=== PATIENT | female | born 1980 | race African-American/Black ===

== ENCOUNTER 2016-06-21 18:20 | Inpatient (IN) | payer MEDICAID, OTHER ==
[~2016-06-21] VITALS: Ht 152.4 cm; Wt 57.2 kg
[2016-06-21] VITALS (8 sets, daily range): BP systolic 109–124; BP diastolic 64–86; PULSE 109–140; RESP 16–40; TEMP 98.9–99.9; O2SAT 76–98
[~2016-06-21 18:20] MED LIST: CLON.2 PO; ZOLO20CO PO; inhaler INH
[2016-06-21] MEDS ORDERED: methylPREDNISolone SOD SUCC 125 MG/2 ML VIAL IVP ONE (18:45)
[2016-06-21] MEDS ORDERED: SODIUM CHLORIDE 0.9% FLUSH 10 ML FLUSH IVF PRN (18:45)
[2016-06-21] MEDS: RESP: ALBUTEROL 2.5 MG/IPRATROPIUM 0.5 MG NEB (SCH) INH (18:53)
[2016-06-21 19:08] LABS: AUTOMATED NEUTROPHIL # 10.8 TH/MM3 (1.8-7.7); BASOPHIL # 0.1 TH/MM3 (0-0.2); BASOPHIL % 0.7 % (0.0-2.0); EOSINOPHIL % 0.1 % (0.0-4.0); HEMATOCRIT 36.3 % (35.0-46.0); HEMO FLAGS DIFF FINAL; LYMPH % 7.3 % (9.0-44.0); MEAN CELL VOLUME 101.7 FL (80.0-100.0); MEAN CORPUSCULAR HEMOGLOBIN 35.3 PG (27.0-34.0); MEAN CORPUSCULAR HGB CONC 34.7 % (32.0-36.0); MONO % 10.4 % (0.0-8.0); NEUT % 81.5 % (16.0-70.0); PLATELET COUNT 263 TH/MM3 (150-450); RED BLOOD COUNT 3.57 MIL/MM3 (4.00-5.30); RED CELL DISTRIBUTION WIDTH 14.4 % (11.6-17.2); WHITE BLOOD COUNT 13.3 TH/MM3 (4.0-11.0)
--- NOTE | 2016-06-21 19:19 | PD ---
HPI Chief Complaint: Respiratory Symptoms Time Seen by Provider: 18:40 Travel History International Travel<30 days: No Contact w/Intl Traveler<30days: No Traveled to known affect area: No History of Present Illness HPI Patient is a 35-year-old female presenting to emergency department the back for evaluation of shortness of breath. Patient symptoms have been ongoing for 4 days, she reports wheezing EMS states that patient's oxygen saturation was in the low 70s initially, after 2 DuoNeb and O2 administration her sats were assessed at 92%. EMS states that the patient was tachycardic with a rate of 115. After nebulizer treatments patient's heart rate was 130. Patient reports coughing up clear mucus, reports nausea but no vomiting. History of asthma, hypertension, anxiety. She is current daily daily smoker. PFSH Past Medical History Hx Anticoagulant Therapy: No Asthma: Yes Anxiety: Yes Depression: Yes Cardiovascular Problems: Yes (HTN) Chemotherapy: No Cerebrovascular Accident: No Diabetes: No Hypertension: Yes Respiratory: Yes (ASTHMA) Immunizations Current: Yes Influenza Vaccination: No ?: Not LMP: 05/30/2016 : 3 Para: 3 Tubal Ligation: Yes Past Surgical History Section: Yes (X 2) Hysterectomy: No Tonsillectomy: Yes (AND ADDENOIDS) Social History Alcohol Use: Yes (OCCASIONALLY) Tobacco Use: Yes (1/2 ppd) Substance Use: No Allergies-Medications (Allergen,Severity, Reaction): Coded Allergies: No Known Allergies (Unverified , 06/21/16) Reported Meds & Prescriptions Reported Meds & Active Scripts Active No Active Prescriptions or Reported Medications Review of Systems Except as stated in HPI: all other systems reviewed are Neg General / Constitutional: No: Fever Respiratory: Positive: Cough, Shortness of Breath Gastrointestinal: Positive: Nausea, Vomiting, No: Abdominal Pain Neurologic: Positive: Weakness Physical Exam Narrative GENERAL: Well, well-nourished, alert female. Appears uncomfortable. SKIN: Warm and dry. HEAD: Atraumatic. Normocephalic. EYES: Pupils equal and round. No scleral icterus. No injection or drainage. ENT: No nasal bleeding or discharge. Mucous membranes pink and moist. NECK: Trachea midline. No JVD. CARDIOVASCULAR: Regular rate and rhythm. RESPIRATORY: Tachypneic. Left lower lung with coarse breath sounds. No wheezing noted on exam. GASTROINTESTINAL: Abdomen soft, non-tender, nondistended. Hepatic and splenic margins not palpable. MUSCULOSKELETAL: Extremities without clubbing, cyanosis, or edema. No obvious deformities. NEUROLOGICAL: Awake and alert. No obvious cranial nerve deficits. Motor grossly within normal limits. Five out of 5 muscle strength in the arms and legs. Normal speech. PSYCHIATRIC: Appropriate mood and affect; insight and judgment normal. Data Data Last Documented VS Vital Signs Date Time Temp Pulse Resp B/P Pulse Ox O2 Delivery O2 Flow Rate FiO2 06/21/16 20:40 126 32 121/86 89 Non-Rebreather 100 06/21/16 20:01 15 06/21/16 18:34 99.9 Orders Complete Blood Count With Diff (06/21/16 18:40) Comprehensive Metabolic Panel (06/21/16 18:40) D-Dimer (06/21/16 18:40) Act Partial Throm Time (Ptt) (06/21/16 18:40) Prothrombin Time / Inr (Pt) (06/21/16 18:40) Magnesium (Mg) (06/21/16 18:40) Ckmb (Isoenzyme) Profile (06/21/16 18:40) Troponin I (06/21/16 18:40) Urinalysis - C+S If Indicated (06/21/16 18:40) Iv Access Insert/Monitor (06/21/16 18:40) Electrocardiogram (06/21/16 18:40) Ecg Monitoring (06/21/16 18:40) Oximetry (06/21/16 18:40) Oxygen Administration (06/21/16 18:40) Chest, Single Ap (06/21/16 18:40) Sodium Chloride 0.9% Flush (Ns Flush) (06/21/16 18:45) Methylprednisolone So Succ Inj (Solumedr (06/21/16 18:45) Albuterol-Ipratropium Neb (Duoneb Neb) (06/21/16 18:45) Ed Urine Pregnancytest Poc (06/21/16 18:40) Hydromorphone Pf Inj (Dilaudid Pf Inj) (06/21/16 19:30) Lorazepam Inj (Ativan Inj) (06/21/16 19:30) Lidocaine 1% Inj (50 Ml) (Xylocaine 1% I (06/21/16 19:45) Chest, Single Ap (06/21/16 19:55) Potassium Chlor 20 Meq Premix (Kcl 20 Me (06/21/16 20:00) Consult General Surgery (06/21/16 ) Chest, Single Ap (06/21/16 20:39) Labs Laboratory Tests Test 06/21/16 19:00 White Blood Count 13.3 TH/MM3 Red Blood Count 3.57 MIL/MM3 Hemoglobin 12.6 GM/DL Hematocrit 36.3 % Mean Corpuscular Volume 101.7 FL Mean Corpuscular Hemoglobin 35.3 PG Mean Corpuscular Hemoglobin 34.7 % Concent Red Cell Distribution Width 14.4 % Platelet Count 263 TH/MM3 Mean Platelet Volume 8.7 FL Neutrophils (%) (Auto) 81.5 % Lymphocytes (%) (Auto) 7.3 % Monocytes (%) (Auto) 10.4 % Eosinophils (%) (Auto) 0.1 % Basophils (%) (Auto) 0.7 % Neutrophils # (Auto) 10.8 TH/MM3 Lymphocytes # (Auto) 1.0 TH/MM3 Monocytes # (Auto) 1.4 TH/MM3 Eosinophils # (Auto) 0.0 TH/MM3 Basophils # (Auto) 0.1 TH/MM3 CBC Comment DIFF FINAL Differential Comment Prothrombin Time 10.6 SEC Prothromb Time International 1.0 RATIO Ratio Activated Partial 26.8 SEC Thromboplast Time D-Dimer Quantitative (PE/DVT) 0.54 MG/L FEU Sodium Level 135 MEQ/L Potassium Level 2.9 MEQ/L Chloride Level 95 MEQ/L Carbon Dioxide Level 29.0 MEQ/L Anion Gap 11 MEQ/L Blood Urea Nitrogen 9 MG/DL Creatinine 0.64 MG/DL Estimat Glomerular Filtration 126 ML/MIN Rate Random Glucose 128 MG/DL Calcium Level 8.7 MG/DL Magnesium Level 1.7 MG/DL Total Bilirubin 0.7 MG/DL Aspartate Amino Transf 46 U/L (AST/SGOT) Alanine Aminotransferase 32 U/L (ALT/SGPT) Alkaline Phosphatase 134 U/L Total Creatine Kinase 61 U/L Troponin I LESS THAN 0.02 NG/ML Total Protein 7.6 GM/DL Albumin 3.1 GM/DL MDM Medical Decision Making Medical Screen Exam Complete: Yes Emergency Medical Condition: Yes Interpretation(s) Last Impressions Chest X-Ray 06/21/16 1840 Signed Impressions: Service Date/Time: Tuesday, June 21, 2016 18:50 - CONCLUSION: 1. Large right-sided pneumothorax with near complete collapse of the right lung and slight mediastinal shift from [id number]. The emergency department is aware of this finding. Rafael Matias MD Vital Signs Date Time Temp Pulse Resp B/P Pulse Ox O2 Delivery O2 Flow Rate FiO2 06/21/16 18:37 130 16 124/78 95 Partial Rebreather 15 06/21/16 18:34 99.9 140 16 124/78 76 Differential Diagnosis Asthma exacerbation versus pneumonia versus bronchitis versus pulmonary embolism versus pneumothorax versus other Narrative Course Patient is a 35-year-old female presenting to emergency for evaluation of 4 days of shortness of breath. Patient has a history of asthma, labs and imaging were ordered and pending, patient is tachycardic on arrival, IV access established, patient placed on telemetry monitoring and continuous pulse oximetry. Patient was placed on nonrebreather O2 sats in the upper 80s. Initial chest x-ray shows a large right-sided pneumothorax with near-complete collapse of the right lung with slight mediastinal shift from the right to left. Chest tube placement Dr. Reis, for procedure documentation. Lab reported a potassium level of 2.9, IV replacement ordered. D-dimer elevated at 0.54 Due to the critical status of patient, care was assumed by my attending physician please see her documentation. Scripts No Active Prescriptions or Reported Meds Ellie Rodriguez June 21, 2016 19:19
[2016-06-21 19:24] LABS: APTT (PATIENT) 26.8 SEC (24.3-30.1); PROTHROMBIN TIME - PATIENT 10.6 SEC (9.8-11.6)
[2016-06-21] MEDS ORDERED: HYDROmorphone HCL PF 1 MG/ML VIAL IV PUSH ONE (19:30)
[2016-06-21] MEDS ORDERED: LORazepam 2 MG/ML VIAL IV PUSH ONE (19:30)
[2016-06-21 19:41] LABS: ALKALINE PHOSPHATASE 134 U/L (45-117); ALT (GPT) 32 U/L (10-53); ANION GAP 11 MEQ/L (5-15); AST (GOT) 46 U/L (15-37); BLOOD UREA NITROGEN 9 MG/DL (7-18); CHLORIDE 95 MEQ/L (98-107); GLOMERULAR FILTRATION RATE 126 ML/MIN (>89); MAGNESIUM 1.7 MG/DL (1.5-2.5); SODIUM (NA) 135 MEQ/L (136-145); TOTAL BILIRUBIN ADULT 0.7 MG/DL (0.2-1.0)
[2016-06-21] MEDS ORDERED: LIDOCAINE HCL 1% 50 ML VIAL INFIL ONE (19:45)
--- NOTE | 2016-06-21 19:46 | RADRPT ---
EXAM DATE/TIME: 06/21/2016 18:50 [facility] COMPARISON: No previous studies available for comparison. INDICATIONS : Cough. MEDICAL HISTORY : None. SURGICAL HISTORY : None. ENCOUNTER: Initial ACUITY: 4 - 6 days PAIN SCORE: 0/10 LOCATION: Bilateral chest FINDINGS: There is a large right-sided pneumothorax with near-complete collapse of the right lung. There is sli ght mediastinal shift from right to left. There is some compressive atelectasis in the left lung. No effusion. CONCLUSION: 1. Large right-sided pneumothorax with near complete collapse of the right lung and slight mediastina l shift from [id number]. The emergency department is aware of this finding. Rafael Matias MD on June 21, 2016 at 19:42 Board Certified Radiologist. This report was verified electronically.
[2016-06-21 19:54] LABS: CREATINE KINASE 61 U/L (26-192)
[2016-06-21 19:56] LABS: POTASSIUM 2.9 MEQ/L (3.5-5.1)
[2016-06-21] MEDS: POTASSIUM CHLOR 20 MEQ PREMIX 100 ML IV SCH ×2 (20:00→22:00)
--- NOTE | 2016-06-21 20:49 | RADRPT ---
EXAM DATE/TIME: 06/21/2016 20:04 [facility] COMPARISON: CHEST SINGLE AP, June 21, 2016, 18:50. INDICATIONS : Chest Tube Placement MEDICAL HISTORY : None. SURGICAL HISTORY : None. ENCOUNTER: Subsequent ACUITY: 4 - 6 days PAIN SCORE: 0/10 LOCATION: Bilateral chest FINDINGS: A single view of the chest demonstrates a small caliber right chest tube. There are is a residual sma ll right pneumothorax. There is increased airspace disease in the lungs which could represent reexpan stalin pulmonary edema. No left pneumothorax. CONCLUSION: 1. Patient has small caliber right chest tube. Small residual right pneumothorax. Probable reexpansio n pulmonary edema. Rafael Matias MD on June 21, 2016 at 20:45 Board Certified Radiologist. This report was verified electronically.
--- NOTE | 2016-06-21 21:00 | RADRPT ---
EXAM DATE/TIME: 06/21/2016 20:40 [facility] COMPARISON: CHEST SINGLE AP, June 21, 2016, 20:04. INDICATIONS : Short of breath. MEDICAL HISTORY : SURGICAL HISTORY : None. ENCOUNTER: Initial ACUITY: 1 day PAIN SCORE: 0/10 LOCATION: Bilateral chest FINDINGS: There is increasing airspace disease in right lung, probably reexpansion pulmonary edema. Less severe airspace disease present on the left. There is a right-sided chest small right pneumothorax. CONCLUSION: 1. Increasing airspace disease in the right lung, probably reexpansion pulmonary edema. There is a ri ght chest tube with a small residual right pneumothorax. Rafael Matias MD on June 21, 2016 at 20:57 Board Certified Radiologist. This report was verified electronically.
--- NOTE | 2016-06-21 21:32 | PD ---
Physical Exam Date Seen by Provider: June 21, 2016 Time Seen by Provider: 20:00 Narrative I, Dr. Herndon, have reviewed the advance practice practitioner's documentation and am in agreement, met with the patient face to face, made the diagnosis, and the medical decision making was done by me. *My assessment and Findings: Patient seen and evaluated with PA, please see PA note for further details. Patient was examined by me and has decreased breath sounds throughout although more pronounced on the right than the left. She had some mild wheezing on the left as well. She had been treated with Solu-Medrol and nebulizers with slow saturations and tachycardia. Chest x-ray done shows large right pneumothorax. At this point, chest tube was placed by me for reexpansion. Patient was given Dilaudid and Ativan for pain and anxiety relief. After chest tube, saturations came up to 100%. Patient had less respiratory distress. A repeat chest film was done which shows chest tube in place. However, there does appear to be pulmonary edema on the right and case was discussed with Dr. Matias who confirms pulmonary edema, likely secondary to reexpansion. At this point, patient will need further admission and treatment. Case was discussed with Dr. Mckinley of general surgery and he states that he would like the patient to be medically admitted with consult to him. Patient's lab work returns showing low potassium and IV potassium has been ordered. Case was then discussed with Dr. Valencia for admission to ICU considering the significant pulmonary edema. At this point, patient saturations are again low at a rate of 90% on oxygen. It appears that the chest tube is in place. There is good airflow through the Pleur-evac. Additional chest x-ray was done to rule out a clot chest tube or chest tube malfunction. Additional chest x-ray did not show any new findings and shows that the lung has been reexpanded with pulmonary edema notable again. At this point, Dr. Valencia was called regarding findings and ABG has been ordered, and he states he will evaluate the patient. At this point, care has been transferred to Dr. Valencia at 9 PM. Laboratory Tests Test 06/21/16 19:00 White Blood Count 13.3 TH/MM3 (4.0-11.0) Red Blood Count 3.57 MIL/MM3 (4.00-5.30) Mean Corpuscular Volume 101.7 FL (80.0-100.0) Mean Corpuscular Hemoglobin 35.3 PG (27.0-34.0) Neutrophils (%) (Auto) 81.5 % (16.0-70.0) Lymphocytes (%) (Auto) 7.3 % (9.0-44.0) Monocytes (%) (Auto) 10.4 % (0.0-8.0) Neutrophils # (Auto) 10.8 TH/MM3 (1.8-7.7) Monocytes # (Auto) 1.4 TH/MM3 (0-0.9) D-Dimer Quantitative (PE/DVT) 0.54 MG/L FEU (0.00-0.50) Sodium Level 135 MEQ/L (136-145) Potassium Level 2.9 MEQ/L (3.5-5.1) Chloride Level 95 MEQ/L (98-107) Random Glucose 128 MG/DL (74-106) Aspartate Amino Transf 46 U/L (15-37) (AST/SGOT) Alkaline Phosphatase 134 U/L (45-117) Troponin I LESS THAN 0.02 NG/ML (0.02-0.05) Albumin 3.1 GM/DL (3.4-5.0) Last 24 hours Impressions Chest X-Ray 06/21/16 1840 Signed Impressions: Service Date/Time: Tuesday, June 21, 2016 18:50 - CONCLUSION: 1. Large right-sided pneumothorax with near complete collapse of the right lung and slight mediastinal shift from [id number]. The emergency department is aware of this finding. Rafael Matias MD Data Data Last Documented VS Vital Signs Date Time Temp Pulse Resp B/P Pulse Ox O2 Delivery O2 Flow Rate FiO2 06/21/16 20:54 30 06/21/16 20:40 126 121/86 89 Non-Rebreather 100 06/21/16 20:01 15 06/21/16 18:34 99.9 Orders Complete Blood Count With Diff (06/21/16 18:40) Comprehensive Metabolic Panel (06/21/16 18:40) D-Dimer (06/21/16 18:40) Act Partial Throm Time (Ptt) (06/21/16 18:40) Prothrombin Time / Inr (Pt) (06/21/16 18:40) Magnesium (Mg) (06/21/16 18:40) Ckmb (Isoenzyme) Profile (06/21/16 18:40) Troponin I (06/21/16 18:40) Urinalysis - C+S If Indicated (06/21/16 18:40) Iv Access Insert/Monitor (06/21/16 18:40) Electrocardiogram (06/21/16 18:40) Ecg Monitoring (06/21/16 18:40) Oximetry (06/21/16 18:40) Oxygen Administration (06/21/16 18:40) Chest, Single Ap (06/21/16 18:40) Sodium Chloride 0.9% Flush (Ns Flush) (06/21/16 18:45) Methylprednisolone So Succ Inj (Solumedr (06/21/16 18:45) Albuterol-Ipratropium Neb (Duoneb Neb) (06/21/16 18:45) Ed Urine Pregnancytest Poc (06/21/16 18:40) Hydromorphone Pf Inj (Dilaudid Pf Inj) (06/21/16 19:30) Lorazepam Inj (Ativan Inj) (06/21/16 19:30) Lidocaine 1% Inj (50 Ml) (Xylocaine 1% I (06/21/16 19:45) Chest, Single Ap (06/21/16 19:55) Potassium Chlor 20 Meq Premix (Kcl 20 Me (06/21/16 20:00) Consult General Surgery (06/21/16 ) Chest, Single Ap (06/21/16 20:39) Admit Order (Ed Use Only) (06/21/16 20:53) Labs Laboratory Tests Test 06/21/16 19:00 White Blood Count 13.3 TH/MM3 Red Blood Count 3.57 MIL/MM3 Hemoglobin 12.6 GM/DL Hematocrit 36.3 % Mean Corpuscular Volume 101.7 FL Mean Corpuscular Hemoglobin 35.3 PG Mean Corpuscular Hemoglobin 34.7 % Concent Red Cell Distribution Width 14.4 % Platelet Count 263 TH/MM3 Mean Platelet Volume 8.7 FL Neutrophils (%) (Auto) 81.5 % Lymphocytes (%) (Auto) 7.3 % Monocytes (%) (Auto) 10.4 % Eosinophils (%) (Auto) 0.1 % Basophils (%) (Auto) 0.7 % Neutrophils # (Auto) 10.8 TH/MM3 Lymphocytes # (Auto) 1.0 TH/MM3 Monocytes # (Auto) 1.4 TH/MM3 Eosinophils # (Auto) 0.0 TH/MM3 Basophils # (Auto) 0.1 TH/MM3 CBC Comment DIFF FINAL Differential Comment Prothrombin Time 10.6 SEC Prothromb Time International 1.0 RATIO Ratio Activated Partial 26.8 SEC Thromboplast Time D-Dimer Quantitative (PE/DVT) 0.54 MG/L FEU Sodium Level 135 MEQ/L Potassium Level 2.9 MEQ/L Chloride Level 95 MEQ/L Carbon Dioxide Level 29.0 MEQ/L Anion Gap 11 MEQ/L Blood Urea Nitrogen 9 MG/DL Creatinine 0.64 MG/DL Estimat Glomerular Filtration 126 ML/MIN Rate Random Glucose 128 MG/DL Calcium Level 8.7 MG/DL Magnesium Level 1.7 MG/DL Total Bilirubin 0.7 MG/DL Aspartate Amino Transf 46 U/L (AST/SGOT) Alanine Aminotransferase 32 U/L (ALT/SGPT) Alkaline Phosphatase 134 U/L Total Creatine Kinase 61 U/L Troponin I LESS THAN 0.02 NG/ML Total Protein 7.6 GM/DL Albumin 3.1 GM/DL [facility] Medical Record Reviewed: Yes Supervised Visit with SAMIA: Yes Critical Care Narrative Critical Care: The total critical care time was 35 minutes. Time to perform other separately billable procedures was not included in the critical care time. Aggregate critical care time was 35 minutes. Time to perform other separately billable procedures was not included in the critical care time. My time did not include minutes spent treating any other patients simultaneously or on activities that did not directly contribute to the patient's treatment. The services I provided to this patient were to treat and/or prevent clinically significant deterioration that could result in: Tension pneumothorax, respiratory failure, I provided critical care services requiring my management, as noted below: Chart data review, documentation time, medication orders and management, vital sign assessments/reviewing monitor data, ordering and reviewing lab tests, ordering and interpreting/reviewing x-rays and diagnostic studies, care of the patient and discussion of the patient with the admitting physicians. Procedures Procedure Narrative CHEST TUBE THORACOSTOMY: The right chest was prepped with Betadine and sterilely draped. The area of the fifth intercostal interspace was infiltrated with 1% lidocaine plain. A half centimeter incision was made with a scalpel at the fifth intercostal space. Blunt dissection using pigtail catheter on trocar to the fourth intercostal interspace performed and the pleura was punctured with immediate forbes of air. Catheter was then directed posteriorly. Tube draining well. The thoracostomy tube was secured with suture device to the chest wall. Patient tolerated procedure well. Diagnosis Primary Impression: Pneumothorax, right Additional Impressions: Chest tube in place Pulmonary edema Admitting Information Admitting Physician Requests: Admit Scripts No Active Prescriptions or Reported Meds Heriberto Herndon MD June 21, 2016 21:32
[2016-06-21 21:35] LABS: BLOOD GAS CARBOXYHEMOGLOBIN 1.4 % (0-4); BLOOD GAS HCO3 27 mmol/L (22-26); BLOOD GAS METHEMOGLOBIN 0.6 % (0-2); BLOOD GAS O2 HGB SATURATION 79 % (90-100); BLOOD GAS OXYGEN CONTENT 15.7 Vol % (12.0-20.0); BLOOD GAS PCO2 45 mmHg (38-42); BLOOD GAS PO2 49 mmHG (61-120); BLOOD GAS TOTAL HGB 14.2 G/DL (12.0-16.0); CRITICAL VALUE YES; DRAW SITE RT RADIAL; FIO2 100 %; LITER FLOW 15 L/M; NUMBER OF ARTERIAL PUNCTURES 1; STAT YES; TEMP CORR TO 98.6; ULNAR PULSE PRESENT
[2016-06-21] MEDS ORDERED: ZOLPIDEM TARTRATE 5 MG TAB PO PRN (22:00)
[2016-06-21] MEDS ORDERED: ACETAMINOPHEN 325 MG TAB PO PRN (22:00)
[2016-06-21] MEDS ORDERED: ONDANSETRON HCL 4 MG/2 ML VIAL IV PRN (22:00)
[2016-06-21] MEDS ORDERED: RESP: ALBUTEROL 2.5 MG/IPRATROPIUM 0.5 MG NEB (PRN) INH (22:00)
[2016-06-21] MEDS ORDERED: CHLORHEXIDINE GLUCONATE 2 % 1 PACK (2 CLOTHS) TOP PRN (22:00)
[2016-06-21] MEDS ORDERED: LORazepam 2 MG/ML VIAL IV PRN (22:00)
[2016-06-21] MEDS ORDERED: METOCLOPRAMIDE HCL 10 MG/2 ML VIAL IV PRN (22:00)
[2016-06-21] MEDS ORDERED: MISCELLANEOUS NURSING INFORMATION XX SCH (22:00)
--- NOTE | 2016-06-21 22:04 | HHI.HP ---
HPI Service Critical Care Medicine Primary Care Physician No Primary Care Physician Admission Diagnosis large right pneumothorax/chest tube/pulmonary edema Diagnosis: Travel History International Travel<30 Days: No Contact w/Intl Traveler <30 Da: No Traveled to Known Affected Are: No History of Present Illness 35-year-old female with history of asthma presenting to emergency department for evaluation of shortness of breath. EMS states that patient's oxygen saturation was in the low 70s initially, after 2 DuoNeb and O2 administration her sats were assessed at 92%. Her chart the patient was tachycardic with a rate of 115. After nebulizer treatments patient's heart rate was 130. Patient reports coughing up clear mucus, reports nausea but no vomiting. The chest x- ray revealed large right-sided pneumothorax with attention. The chest tube was placed by ED attending with a good lung reexpansion however complicated with reexpansion pulmonary edema. Patient is placed on facemask BiPAP with improving oxygenation. Review of Systems Constitutional: DENIES: Diaphoretic episodes, Fatigue, Fever, Weight gain, Weight loss, Chills, Dizziness, Change in appetite, Night Sweats Endocrine: DENIES: Abnorml menstrual pattern, Heat/cold intolerance, Polydipsia , Polyuria, Polyphagia Eyes: DENIES: Blurred vision, Diplopia, Eye inflammation, Eye pain, Vision loss , Photosensitivity, Double Vision Ears, nose, mouth, throat: DENIES: Tinnitus, Hearing loss, Vertigo, Nasal discharge, Oral lesions, Throat pain, Hoarseness, Ear Pain, Running Nose, Epistaxis, Sinus Pain, Toothache, Odynophagia Respiratory: COMPLAINS OF: Cough, Wheezing, Sputum production, Shortness of breath, DENIES: Apneas, Snoring, Hemoptysis Cardiovascular: DENIES: Chest pain, Palpitations, Syncope, Dyspnea on Exertion , PND, Lower Extremity Edema, Orthopnea, Claudication Gastrointestinal: DENIES: Abdominal pain, Black stools, Bloody stools, Constipation, Diarrhea, Nausea, Vomiting, Difficulty Swallowing, Anorexia Genitourinary: DENIES: Abnormal vaginal bleeding, Dysmenorrhea, Dyspareunia, Sexual dysfunction, Urinary frequency, Urinary incontinence, Urgency, Hematuria , Dysuria, Nocturia, Vaginal discharge Musculoskeletal: DENIES: Joint pain, Muscle aches, Stiffness, Joint Swelling, Back pain, Neck pain Integumentary: DENIES: Abnormal pigmentation, Pruritus, Rash, Nail changes, Breast masses, Breast skin changes, Nipple discharge Hematologic/lymphatic: DENIES: Bruising, Lymphadenopathy Immunologic/allergic: DENIES: Eczema, Urticaria Psychiatric: DENIES: Anxiety, Confusion, Mood changes, Depression, Hallucinations, Agitation, Suicidal Ideation, Homicidal Ideation, Delusions Past Family Social History Allergies: Coded Allergies: No Known Allergies (Unverified , 06/21/16) Past Medical History Asthma Hypertension Anxiety Past Surgical History None Reported Medications Reported Meds & Active Scripts Active No Active Prescriptions or Reported Medications Active Ordered Medications Current Medications Medications (Trade) Dose Ordered Sig/Wandy Route PRN Reason Start Time Stop Time Status Last Admin Dose Admin Potassium Chloride (KCl 20 Meq Premix Inj) 100 ml @ 50 mls/hr Q2H IV 06/21/16 20:00 06/21/16 23:59 06/21/16 22:00 Morphine Sulfate (Morphine Inj) 2 mg Q2H PRN IV PUSH PAIN SCALE 4 TO 10 06/21/16 22:00 06/21/16 22:13 Sodium Chloride (NS Flush) 2 ml UNSCH PRN .XX FLUSH AFTER USING IV ACCESS 06/21/16 22:00 Sodium Chloride (NS Flush) 2 ml BID .XX 06/22/16 09:00 Acetaminophen (Tylenol) 650 mg Q6H PRN PO PAIN 1-10 AND/OR FEVER >101F 06/21/16 22:00 Lorazepam (Ativan Inj) 1 mg Q4H PRN IV Agitation/Sedation 06/21/16 22:00 Ondansetron HCl (Zofran Inj) 4 mg Q6H PRN IV NAUSEA OR VOMITING 06/21/16 22:00 Metoclopramide HCl (Reglan Inj) 10 mg Q6H PRN IV NAUSEA OR VOMITING 06/21/16 22:00 Zolpidem Tartrate (Ambien) 5 mg HS PRN PO INSOMNIA 06/21/16 22:00 Enoxaparin Sodium (Lovenox Inj) 30 mg Q24H SQ 06/21/16 22:00 Miscellaneous Information 1 [id number] XX 06/21/16 22:00 Chlorhexidine Gluconate (Chlorhexidine 2% Cloth) 3 pack Taper DAILY@04 TOP 06/22/16 04:00 06/18/17 03:59 Chlorhexidine Gluconate (Chlorhexidine 2% Cloth) 3 pack UNSCH PRN TOP HYGIENIC CARE 06/21/16 22:00 Family History Noncontributory Social History Smokes daily No alcohol or illicit drug abuse Physical Exam Vital Signs Vital Signs Date Time Temp Pulse Resp B/P Pulse Ox O2 Delivery O2 Flow Rate FiO2 06/21/16 21:30 122 40 120/68 85 Non-Rebreather 100 06/21/16 20:54 30 06/21/16 20:40 126 32 121/86 89 Non-Rebreather 100 06/21/16 20:01 127 24 109/64 98 Non-Rebreather 15 06/21/16 18:37 130 16 124/78 95 Partial Rebreather 15 06/21/16 18:34 99.9 140 16 124/78 76 Physical Exam GENERAL: Well-nourished, well-developed patient. On the face mask BiPAP in no acute distress SKIN: Warm and dry. HEAD: Normocephalic. EYES: No scleral icterus. No injection or drainage. NECK: Supple, trachea midline. No JVD or lymphadenopathy. CARDIOVASCULAR: Regular rate and rhythm without murmurs, gallops, or rubs. RESPIRATORY: Breath sounds equal bilaterally. No accessory muscle use. GASTROINTESTINAL: Abdomen soft, non-tender, nondistended. MUSCULOSKELETAL: No cyanosis, or edema. BACK: Nontender without obvious deformity. No CVA tenderness. EXTREMITIES: No clubbing cyanosis or edema Laboratory Laboratory Tests Test 06/21/16 06/21/16 19:00 21:32 White Blood Count 13.3 Red Blood Count 3.57 Hemoglobin 12.6 Hematocrit 36.3 Mean Corpuscular Volume 101.7 Mean Corpuscular Hemoglobin 35.3 Mean Corpuscular Hemoglobin 34.7 Concent Red Cell Distribution Width 14.4 Platelet Count 263 Mean Platelet Volume 8.7 Neutrophils (%) (Auto) 81.5 Lymphocytes (%) (Auto) 7.3 Monocytes (%) (Auto) 10.4 Eosinophils (%) (Auto) 0.1 Basophils (%) (Auto) 0.7 Neutrophils # (Auto) 10.8 Lymphocytes # (Auto) 1.0 Monocytes # (Auto) 1.4 Eosinophils # (Auto) 0.0 Basophils # (Auto) 0.1 CBC Comment DIFF FINAL Differential Comment Prothrombin Time 10.6 Prothromb Time International 1.0 Ratio Activated Partial 26.8 Thromboplast Time D-Dimer Quantitative (PE/DVT) 0.54 Sodium Level 135 Potassium Level 2.9 Chloride Level 95 Carbon Dioxide Level 29.0 Anion Gap 11 Blood Urea Nitrogen 9 Creatinine 0.64 Estimat Glomerular Filtration 126 Rate Random Glucose 128 Calcium Level 8.7 Magnesium Level 1.7 Total Bilirubin 0.7 Aspartate Amino Transf 46 (AST/SGOT) Alanine Aminotransferase 32 (ALT/SGPT) Alkaline Phosphatase 134 Total Creatine Kinase 61 Troponin I LESS THAN 0.02 Total Protein 7.6 Albumin 3.1 Blood Gas Puncture Site RT RADIAL Blood Gas Patient Temperature 98.6 Blood Gas HCO3 27 Blood Gas Base Excess 3.0 Blood Gas Oxygen Saturation 79 Arterial Blood pH 7.40 Arterial Blood Partial 45 Pressure CO2 Arterial Blood Partial 49 Pressure O2 Arterial Blood Oxygen Content 15.7 Arterial Blood 1.4 Carboxyhemoglobin Arterial Blood Methemoglobin 0.6 Blood Gas Hemoglobin 14.2 Oxygen Delivery Device Non-Rebreathing Mask Blood Gas Liter Flow 15 Blood Gas Inspired Oxygen 100 Result Diagram: 06/21/16189906/21/161899 Imaging Last 24 hours Impressions Chest X-Ray 06/21/162038 Signed Impressions: Service Date/Time: Tuesday, June 21, 2016 20:40 - CONCLUSION: 1. Increasing airspace disease in the right lung, probably reexpansion pulmonary edema. There is a right chest tube with a small residual right pneumothorax. Rafael Matias MD Chest X-Ray 06/21/161954 Signed Impressions: Service Date/Time: Tuesday, June 21, 2016 20:04 - CONCLUSION: 1. Patient has small caliber right chest tube. Small residual right pneumothorax. Probable reexpansion pulmonary edema. Rafael Matias MD Chest X-Ray 06/21/16 184 Signed Impressions: Service Date/Time: Tuesday, June 21, 2016 18:50 - CONCLUSION: 1. Large right-sided pneumothorax with near complete collapse of the right lung and slight mediastinal shift from [id number]. The emergency department is aware of this finding. Rafael Matias MD Assessment and Plan Assessment and Plan Pneumothorax - Chest tube placed by ED attending - Continue low wall suction - Repeat CXR a.m. Reexpansion pulmonary edema - Oxygen - BiPAP - Pain control with morphine - Supportive care Asthma - History of asthma - Patient has received IV steroids - Continue DuoNeb's scheduled and when necessary DVT GI prophylaxis - Early aggressive mobilization - Regular diet when off BiPAP Critical Care: The total critical care time was 35 minutes. Time to perform other separately billable procedures was not included in the critical care time. Cash Valencia MD June 21, 2016 22:04
[2016-06-21] MEDS: MORPHINE SULFATE 4 MG/ML INJ IV PUSH PRN (22:13)
[2016-06-21] MEDS ORDERED: IOHEXOL 350 MG/ML 10 ML VIAL (for RAD DIAG) IV ONE (22:55)
--- NOTE | 2016-06-21 23:06 | RADRPT ---
EXAM DATE/TIME: 06/21/2016 22:53 [facility] COMPARISON: CHEST SINGLE AP, June 21, 2016, 20:40. INDICATIONS : Right pneumothorax. IV CONTRAST: 80 cc Omnipaque 350 (iohexol) IV RADIATION DOSE: 3.35 CTDIvol (mGy) MEDICAL HISTORY : Hypertension. Asthma. SURGICAL HISTORY : Tubal ligation. Tonsillectomy. ENCOUNTER: Initial ACUITY: 1 day PAIN SCALE: 0/10 LOCATION: chest TECHNIQUE: Volumetric scanning of the chest was performed. Using automated exposure control and adjustment of t he mA and/or kV according to patient size, radiation dose was kept as low as reasonably achievable to obtain optimal diagnostic quality images. FINDINGS: There is a small caliber right thoracostomy tube enters via lateral approach and is coiled within the major fissure. A large pneumothorax persists anteriorly. Dense consolidation is seen involving both lungs but more pronounced on the right. No effusions. The heart is mildly enlarged without pericardia l effusion. No mass or adenopathy. CONCLUSION: 1. Large right-sided pneumothorax despite small caliber chest tube. The chest tube is coiled within t he major fissure. Consider either a second chest tube more anteriorly or consider having intervention al radiology redirect existing tube more anteriorly. 2. Bilateral pulmonary consolidation. Pulmonary edema versus infectious infiltrate. Obie Ho Jr., MD on June 21, 2016 at 23:00 Board Certified Radiologist. This report was verified electronically.
[2016-06-21] MEDS ORDERED: SODIUM PHOSPHATE INJ 30 MMOL in SODIUM CHLOR 0.9% 250 ML INJ 240 ML IV PRN (23:15)
[2016-06-21] MEDS ORDERED: MAGNESIUM OXIDE 400 MG TAB PO PRN (23:15)
[2016-06-21] MEDS ORDERED: POTASSIUM PHOSPHATE MONOBASIC 500 MG TAB PO PRN (23:15)
[2016-06-21] MEDS ORDERED: POTASSIUM CHLOR 20 MEQ PREMIX 100 ML IV PRN ×2 (23:15)
[2016-06-21] MEDS ORDERED: POTASSIUM PHOSPHATE MONOBASIC 500 MG TAB PO/TUBE PRN (23:15)
[2016-06-21] MEDS ORDERED: POTASSIUM CHLOR 40 MEQ PREMIX 100 ML IV PRN ×2 (23:15)
[2016-06-21] MEDS ORDERED: POTASSIUM CHLORIDE 25 MEQ EFFERVESCENT TAB PO PRN (23:15)
[2016-06-21] MEDS ORDERED: MAGNESIUM SULFATE INJ 2 GM in SODIUM CHLORIDE 0.9% INJ 96 ML IV PRN (23:15)
[2016-06-21] MEDS ORDERED: MAGNESIUM SULFATE INJ 4 GM in SODIUM CHLORIDE 0.9% INJ 92 ML IV PRN (23:15)
[2016-06-22] VITALS (34 sets, daily range): BP systolic 95–150; BP diastolic 46–94; PULSE 71–110; RESP 16–38; TEMP 97.6–98.9; O2SAT 87–99
[2016-06-22] MEDS ORDERED: LIDOCAINE 1%/EPINEPHrine 1:100,000 SOLN 30 ML VIAL ONE (00:05)
[2016-06-22] MEDS: MORPHINE SULFATE 4 MG/ML INJ IV PUSH PRN ×7 (01:13→22:32)
[2016-06-22] MEDS: AZITHROMYCIN INJ 500 MG in SODIUM CHLOR 0.9% 250 ML INJ 250 ML IV SCH (01:16)
[2016-06-22] MEDS: PIPERACIL-TAZO 4.5 GM PREMIX 100 ML IV SCH ×4 (01:16→18:50)
[2016-06-22] MEDS: CHLORHEXIDINE GLUCONATE 2 % 1 PACK (2 CLOTHS) TOP SCH (01:16)
--- NOTE | 2016-06-22 01:17 | RADRPT ---
EXAM DATE/TIME: 06/22/2016 01:04 [facility] COMPARISON: CHEST SINGLE AP, June 21, 2016, 20:40. INDICATIONS : Chest tube placement, shortness of breath, chest pain. MEDICAL HISTORY : Hypertension. Asthma. Smoker. SURGICAL HISTORY : None. ENCOUNTER: Subsequent ACUITY: 2 days PAIN SCORE: 10/10 LOCATION: Right chest FINDINGS: A single portable frontal view of the chest shows a second chest tube within the right hemithorax. Th is is oriented more cephalad. There has been reduction of the previously seen pneumothorax. Dense inf iltrates persist bilaterally. Heart is mildly enlarged. CONCLUSION: Interval placement of a second right chest tube with resolution of the pneumothorax. Persistent bilat eral pulmonary infiltrates. Obie Ho Jr., MD on June 22, 2016 at 1:14 Board Certified Radiologist. This report was verified electronically.
[2016-06-22 02:25] LABS: BLOOD, URINE NEG (NEG); GLUCOSE,URINE NEG (NEG); KETONE, URINE NEG (NEG); MUCUS URINE FEW /lpf (OCC); NITRITE,URINE NEG (NEG); PH, URINE 6.5 (5.0-8.5); SQUAMOUS EPITHELIAL CELL URINE 10 /hpf (0-5); URINE COLOR YELLOW (YELLW/STRAW)
[2016-06-22 02:26] LABS: COMMENT (UR) CULT NOT INDICATED; CULTURE IF INDICATED CULT NOT INDICATED
[2016-06-22 02:28] LABS: BETA HCG QUANT LESS THAN 1 MIU/ML (0-5)
[2016-06-22] MEDS: RESP: ALBUTEROL 2.5 MG/IPRATROPIUM 0.5 MG NEB (SCH) INH ×6 (03:16→23:27)
[2016-06-22 04:34] LABS: AUTOMATED NEUTROPHIL # 14.7 TH/MM3 (1.8-7.7); BASOPHIL % 0.2 % (0.0-2.0); HEMATOCRIT 39.6 % (35.0-46.0); HEMO FLAGS DIFF FINAL; LYMPH % 1.5 % (9.0-44.0); LYMPHOCYTE # 0.2 TH/MM3 (1.0-4.8); MEAN CORPUSCULAR HEMOGLOBIN 34.6 PG (27.0-34.0); MEAN CORPUSCULAR HGB CONC 33.6 % (32.0-36.0); MONO % 6.2 % (0.0-8.0); NEUT % 92.1 % (16.0-70.0); PLATELET COUNT 246 TH/MM3 (150-450); RED BLOOD COUNT 3.85 MIL/MM3 (4.00-5.30); RED CELL DISTRIBUTION WIDTH 14.3 % (11.6-17.2)
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
[2016-06-22 05:11] LABS: ALKALINE PHOSPHATASE 122 U/L (45-117); ALT (GPT) 24 U/L (10-53); ANION GAP 9 MEQ/L (5-15); AST (GOT) 39 U/L (15-37); BLOOD UREA NITROGEN 11 MG/DL (7-18); CHLORIDE 99 MEQ/L (98-107); GLOMERULAR FILTRATION RATE 101 ML/MIN (>89); MAGNESIUM 1.7 MG/DL (1.5-2.5); POTASSIUM 4.2 MEQ/L (3.5-5.1); SODIUM (NA) 138 MEQ/L (136-145); TOTAL BILIRUBIN ADULT 0.9 MG/DL (0.2-1.0)
--- NOTE | 2016-06-22 07:43 | HHI.PR ---
Immediate Post Op Note Procedure Date: June 22, 2016 Pre Op Diagnosis: persistent right ptx Post Op Diagnosis: same Surgeon: Yury Mckinley MD [employer] Director(s): none Procedure: right bedside chest tube 10f pigtail Findings: forbes of air Complications: none Specimen(s) removed: none Estimated blood loss: none Anesthesia: Local Drains: Chest tube Patient to: ISC Patient Condition: Fair Yury Mckinley MD June 22, 2016 07:43
[2016-06-22] MEDS: SODIUM CHLORIDE 0.9% FLUSH 10 ML FLUSH SCH ×2 (09:00→21:04)
--- NOTE | 2016-06-22 11:19 | EKG ---
Date Performed: 06/21/2016 Time Performed: 20:20:14 PTAGE: 35 years EKG: SINUS TACHYCARDIA NONSPECIFIC T-WAVE ABNORMALITY ABNORMAL RHYTHM ECG NO PREVIOUS TRACING DOCTOR: Erasmo Dinh Interpretating Date/Time 06/22/2016 11:15:28
--- NOTE | 2016-06-22 16:07 | HHI.PR ---
Subjective Remarks now on 70% BiPAP- sats good awake and alert, feels better- states she is hungry and asking for something to eat feels short of breath states history of hypertension- was on clonidine Objective Vitals Vital Signs Date Time Temp Pulse Resp B/P Pulse Ox O2 Delivery O2 Flow Rate FiO2 06/22/16 14:00 100 06/22/16 13:14 97 70 06/22/16 12:00 98.4 104 16 146/88 96 06/22/16 12:00 100 06/22/16 10:00 100 06/22/16 08:00 98.5 75 20 137/79 95 06/22/16 08:00 100 06/22/16 07:45 92 Non-Rebreather 12.00 06/22/16 07:00 Bi-Pap 100 06/22/16 06:00 87 06/22/16 05:09 97 100 06/22/16 05:00 98.5 86 30 134/67 98 06/22/16 04:00 86 06/22/16 04:00 98.5 86 28 109/75 99 06/22/16 03:00 98.7 110 28 150/94 95 06/22/16 02:00 84 06/22/16 02:00 98.7 84 20 104/62 94 06/22/16 01:27 94 100 06/22/16 01:00 98.7 104 35 129/82 92 06/22/16 00:00 109 06/22/16 00:00 98.9 109 31 112/68 87 06/21/16 23:10 98.9 109 34 110/70 83 06/21/16 23:10 85 Bi-Pap 06/21/16 22:27 106 32 120/77 93 BiPAP 100 06/21/16 22:12 90 100 06/21/16 21:30 122 40 120/68 85 Non-Rebreather 100 06/21/16 20:54 30 06/21/16 20:40 126 32 121/86 89 Non-Rebreather 100 06/21/16 20:01 127 24 109/64 98 Non-Rebreather 15 06/21/16 18:37 130 16 124/78 95 Partial Rebreather 15 06/21/16 18:34 99.9 140 16 124/78 76 I/O 5/08/3106/21/16 06/21/16 06/22/16 06/22/16 06/22/16 07:00 15:00 23:00 07:00 15:00 23:00 Intake Total 1374 ml 494 ml Output Total 370 ml 600 ml Balance 1004 ml -106 ml Intake Oral 0 ml 100 ml IV Total 1374 ml 394 ml Output Urine Total 250 ml 600 ml Chest Tube Drainage Total 120 ml # Voids 5 # Bowel Movements 0 Result Diagram: 06/22/16 0349 06/22/16 0349 Imaging Last Impressions Chest X-Ray 06/22/16 0000 Signed Impressions: Service Date/Time: Wednesday, June 22, 2016 01:04 - CONCLUSION: Interval placement of a second right chest tube with resolution of the pneumothorax. Persistent bilateral pulmonary infiltrates. Obie Ho Jr., MD Chest CT 06/21/16 0000 Signed Impressions: Service Date/Time: Tuesday, June 21, 2016 22:53 - CONCLUSION: 1. Large right-sided pneumothorax despite small caliber chest tube. The chest tube is coiled within the major fissure. Consider either a second chest tube more anteriorly or consider having interventional radiology redirect existing tube more anteriorly. 2. Bilateral pulmonary consolidation. Pulmonary edema versus infectious infiltrate. Obie Ho Jr., MD Objective Remarks awake alert, on BiPAP- anicteric lungs decreased breath sounds, few basal rales, occasional wheez regular thythm abdomen soft, nontender extremities no edema neuro- moves all extremities equally, CN grossly intact A/P Assessment and Plan 35 years old admitted with Acute Respiratory Failure secondary to Large right spontaneousl pneumothorax S/ P CT x 2- still with high fi02 requirement - Chest tubes x [address] - GS and Pulmonary ff Reexpansion pulmonary edema - Oxygen - BiPAP - Pain control with morphine - Supportive care - Pulmonary ff Asthma- occasional wheezes . History of HAD Infiltrates on XR- Possible PNA - Patient has received IV steroids - on antiibotics - Continue DuoNeb's scheduled and when necessary History of Hypertension -as OP on clonidine- will give with prn parameters - montior DVT GI prophylaxis - Early aggressive mobilization - Regular diet when off BiPAP - Lovenox for DVT prophylaxis Katt Mojica MD June 22, 2016 16:07
--- NOTE | 2016-06-22 18:15 | HHI.PR ---
Subjective Subjective Notes Resting in bed in NAD Objective Vitals/I&O Vital Signs Date Time Temp Pulse Resp B/P Pulse Ox O2 Delivery O2 Flow Rate FiO2 06/22/16 17:08 96 70 06/22/16 16:00 100 06/22/16 12:00 98.4 16 146/88 06/22/16 07:45 Non-Rebreather 12.00 Labs Laboratory Tests Test 06/21/16 06/21/16 06/21/16 06/22/16 19:00 21:32 23:10 01:37 White Blood Count 13.3 Red Blood Count 3.57 Hemoglobin 12.6 Hematocrit 36.3 Mean Corpuscular Volume 101.7 Mean Corpuscular Hemoglobin 35.3 Mean Corpuscular Hemoglobin 34.7 Concent Red Cell Distribution Width 14.4 Platelet Count 263 Mean Platelet Volume 8.7 Neutrophils (%) (Auto) 81.5 Lymphocytes (%) (Auto) 7.3 Monocytes (%) (Auto) 10.4 Eosinophils (%) (Auto) 0.1 Basophils (%) (Auto) 0.7 Neutrophils # (Auto) 10.8 Lymphocytes # (Auto) 1.0 Monocytes # (Auto) 1.4 Eosinophils # (Auto) 0.0 Basophils # (Auto) 0.1 CBC Comment DIFF FINAL Differential Comment Prothrombin Time 10.6 Prothromb Time International 1.0 Ratio Activated Partial 26.8 Thromboplast Time D-Dimer Quantitative (PE/DVT) 0.54 Sodium Level 135 Potassium Level 2.9 Chloride Level 95 Carbon Dioxide Level 29.0 Anion Gap 11 Blood Urea Nitrogen 9 Creatinine 0.64 Estimat Glomerular Filtration 126 Rate Random Glucose 128 Calcium Level 8.7 Magnesium Level 1.7 Total Bilirubin 0.7 Aspartate Amino Transf 46 (AST/SGOT) Alanine Aminotransferase 32 (ALT/SGPT) Alkaline Phosphatase 134 Total Creatine Kinase 61 Troponin I LESS THAN 0.02 LESS THAN 0.02 Total Protein 7.6 Albumin 3.1 Blood Gas Puncture Site RT RADIAL Blood Gas Patient Temperature 98.6 Blood Gas HCO3 27 Blood Gas Base Excess 3.0 Blood Gas Oxygen Saturation 79 Arterial Blood pH 7.40 Arterial Blood Partial 45 Pressure CO2 Arterial Blood Partial 49 Pressure O2 Arterial Blood Oxygen Content 15.7 Arterial Blood 1.4 Carboxyhemoglobin Arterial Blood Methemoglobin 0.6 Blood Gas Hemoglobin 14.2 Oxygen Delivery Device Non-Rebreathing Mask Blood Gas Liter Flow 15 Blood Gas Inspired Oxygen 100 Nasal Screen MRSA (PCR) MRSA NOT DETECTED Human Chorionic Gonadotropin, LESS THAN 1 Quant Test 06/22/16 06/22/16 01:38 03:49 Urine Color YELLOW Urine Turbidity CLEAR Urine pH 6.5 Urine Specific [place] GREATER THAN 1.050 Urine Protein 30 Urine Glucose (UA) NEG Urine Ketones NEG Urine Occult Blood NEG Urine Nitrite NEG Urine Bilirubin NEG Urine Urobilinogen 2.0 Urine Leukocyte Esterase NEG Urine RBC 3 Urine WBC 2 Urine Squamous Epithelial 10 Cells Urine Mucus FEW Microscopic Urinalysis Comment CULT NOT INDICATED White Blood Count 16.0 Red Blood Count 3.85 Hemoglobin 13.3 Hematocrit 39.6 Mean Corpuscular Volume 103.0 Mean Corpuscular Hemoglobin 34.6 Mean Corpuscular Hemoglobin 33.6 Concent Red Cell Distribution Width 14.3 Platelet Count 246 Mean Platelet Volume 8.4 Neutrophils (%) (Auto) 92.1 Lymphocytes (%) (Auto) 1.5 Monocytes (%) (Auto) 6.2 Eosinophils (%) (Auto) 0.0 Basophils (%) (Auto) 0.2 Neutrophils # (Auto) 14.7 Lymphocytes # (Auto) 0.2 Monocytes # (Auto) 1.0 Eosinophils # (Auto) 0.0 Basophils # (Auto) 0.0 CBC Comment DIFF FINAL Differential Comment Sodium Level 138 Potassium Level 4.2 Chloride Level 99 Carbon Dioxide Level 30.0 Anion Gap 9 Blood Urea Nitrogen 11 Creatinine 0.78 Estimat Glomerular Filtration 101 Rate Random Glucose 231 Calcium Level 8.1 Phosphorus Level 4.3 Magnesium Level 1.7 Total Bilirubin 0.9 Aspartate Amino Transf 39 (AST/SGOT) Alanine Aminotransferase 24 (ALT/SGPT) Alkaline Phosphatase 122 Troponin I LESS THAN 0.02 B-Type Natriuretic Peptide 130 Total Protein 6.6 Albumin 2.4 Date/Time Procedure Status Source Growth 06/22/16 01:38 Legionella Antigen - Final Complete Urine Catheterized Urine PRESUMPTIVE NEGATIVE FOR LEGIONELLA P... 06/22/16 01:38 Streptococcus pneumoniae Antigen (M - Final Complete Urine Catheterized Urine PRESUMPTIVE NEGATIVE FOR STREPTOCOCCU... Cardiovascular: Regular Lungs: Clear Abdomen: Non-distended, Non-tender Extremities: No edema Narrative Exam RIGHT sided chest tube x 2 to wall suction A/P Assessment and Plan 35 year old female with large RIGHT sided PTX -Chest tube x 2 to wall suction -Diet as tolerated -Pain control -CXR in AM Attending Statement patient seen at bedside s/p c.t. placement no ptx on cxr c/w c.t. to sxn Attestation The exam, history, and the medical decision-making described in the above note were completed with the assistance of the mid-level provider. I reviewed and agree with the findings presented. I attest that I had a [id number] encounter with the patient on the same day, and personally performed and documented my assessment and findings in the medical record. Em Olivera June 22, 2016 18:15 Yury Mckinley MD June 27, 2016 17:15
[2016-06-22 20:55] LABS: BLOOD GAS CARBOXYHEMOGLOBIN 1.4 % (0-4); BLOOD GAS HCO3 28 mmol/L (22-26); BLOOD GAS METHEMOGLOBIN 1.3 % (0-2); BLOOD GAS O2 HGB SATURATION 82 % (90-100); BLOOD GAS OXYGEN CONTENT 13.8 Vol % (12.0-20.0); BLOOD GAS PCO2 47 mmHg (38-42); BLOOD GAS PO2 50 mmHg (61-120); BLOOD GAS TOTAL HGB 11.9 G/DL (12.0-16.0); TEMP CORR TO 98.6
[2016-06-22 20:59] LABS: CRITICAL VALUE YES; OXYGEN DEVICE BIPAP
[2016-06-22 21:00] LABS: DRAW SITE RT RADIAL; FIO2 80 %; NUMBER OF ARTERIAL PUNCTURES 1; STAT NO; ULNAR PULSE PRESENT; VENT SETTINGS 15/10
[2016-06-22] MEDS: ENOXAPARIN SODIUM 30 MG/0.3 ML SYRINGE SQ SCH ×2 (22:00→22:33)
--- NOTE | 2016-06-22 22:00 | MB ---
cc: CARLI BOYCE DATE OF CONSULTATION 06/22/16 REASON FOR CONSULTATION Pneumothorax, question COPD. HISTORY OF PRESENT ILLNESS Mrs. Lima is a 35-year-old female who presents to the emergency room with severe shortness of breath. The patient has known history of bronchial asthma, chronic cough and mucus production. The patient's chest x-ray had revealed evidence of a large right pneumothorax for which one chest tube and then a second were placed. The patient is on a non-rebreather mask at present and does not relate much history. The history is obtained from her record. PAST MEDICAL HISTORY Her past medical history is that of bronchial asthma, anxiety, depression, hypertension. Tubal ligation in the past. The , T&A as a child. SOCIAL HISTORY The patient smokes half a pack of cigarettes a day. Drinks alcohol socially. Does not use drugs. MEDICATIONS None. ALLERGIES None known. FAMILY HISTORY Noncontributory. REVIEW OF SYSTEMS A 12-point review of systems as per HPI and past history, otherwise, negative. PHYSICAL EXAMINATION VITAL SIGNS: Pulse 96, respiration 24, blood pressure 120/80, oxygen saturation 96% on nonrebreathing mask. HEENT: Exam unremarkable. Eyes without icterus. NECK: Without adenopathy or thyroid enlargement. CHEST: Chest two right chest tubes in place. LUNGS: Few scattered rhonchi. CARDIAC: On exam PMI distant. S1-S2 audible. No murmur or rub. ABDOMEN: Lax, audible bowel sounds. EXTREMITIES: No clubbing, cyanosis or edema. LABORATORY DATA Chest x-ray with resolution of pneumothorax post chest tube insertion. White count 16,000, hemoglobin 13, hematocrit 39, platelets 246,000, sodium 138, potassium 4.2, BUN 11, creatinine 0.7. Arterial blood gas 06/21 with a pO2 of 49, pO2 45 and a pO2 of 7.4 and a pH of 7.40. IMPRESSION 1. Spontaneous right pneumothorax. 2. Bronchial asthma. PLAN The patient will be maintained on oxygen therapy to obtain adequate oxygenation. Should the need arise intubation, mechanical ventilation will be undertaken. The patient has bronchial asthma, will be treated with bronchodilator therapy. Will check her alpha one antitrypsin level. Follow her care along with you and depending on progress proceed further. MD CAROLINE Gonzalez/LOVE /4:03 PM /9:45 PM
--- NOTE | 2016-06-22 22:58 | HHI.CCPN ---
Subjective Remarks/Hospital Course 35-year-old female with history of asthma presenting to emergency department for evaluation of shortness of breath. EMS states that patient's oxygen saturation was in the low 70s initially, after 2 DuoNeb and O2 administration her sats were assessed at 92%. Her chart the patient was tachycardic with a rate of 115. After nebulizer treatments patient's heart rate was 130. Patient reports coughing up clear mucus, reports nausea but no vomiting. The chest x- ray revealed large right-sided pneumothorax with attention. The chest tube was placed by ED attending with a good lung reexpansion however complicated with reexpansion pulmonary edema. Patient is placed on facemask BiPAP with improving oxygenation. 06/22 chest tubes were placed yesterday and today in the morning for unresolving pneumothorax with improvement of x-ray however there is significant worsening of pulmonary infiltrates bilaterally and respiratory distress. Critical care medicine was reconsulted due to hypoxemia and respiratory failure Objective Vital Signs Date Time Temp Pulse Resp B/P Pulse Ox O2 Delivery O2 Flow Rate FiO2 06/22/16 21:00 83 25 112/70 96 06/22/16 20:00 97.6 06/22/16 20:00 Bi-Pap 80 06/22/16 07:45 12.00 Result Diagram: 06/22/16 0349 06/22/16 0349 Other Results Microbiology Date/Time Procedure Status Source Growth 06/22/16 01:38 Legionella Antigen - Final Complete Urine Catheterized Urine PRESUMPTIVE NEGATIVE FOR LEGIONELLA P... 06/22/16 01:38 Streptococcus pneumoniae Antigen (M - Final Complete Urine Catheterized Urine PRESUMPTIVE NEGATIVE FOR STREPTOCOCCU... Laboratory Tests Test 06/22/16 20:14 Blood Gas Puncture Site RT RADIAL Blood Gas Patient Temperature 98.6 Blood Gas HCO3 28 mmol/L (22-26) Blood Gas Base Excess 3.0 mmol/L (-2-2) Blood Gas Oxygen Saturation 82 % (90-100) Arterial Blood pH 7.39 (7.380-7.420) Arterial Blood Partial 47 mmHg (38-42) Pressure CO2 Arterial Blood Partial 50 mmHg Pressure O2 (61-120) Arterial Blood Oxygen Content 13.8 Vol % (12.0-20.0) Arterial Blood 1.4 % (0-4) Carboxyhemoglobin Arterial Blood Methemoglobin 1.3 % (0-2) Blood Gas Hemoglobin 11.9 G/DL (12.0-16.0) Oxygen Delivery Device BIPAP Blood Gas Ventilator Setting 15/10 Blood Gas Inspired Oxygen 80 % Imaging Last 24 hours Impressions Chest X-Ray 06/21/162038 Signed Impressions: Service Date/Time: Tuesday, June 21, 2016 20:40 - CONCLUSION: 1. Increasing airspace disease in the right lung, probably reexpansion pulmonary edema. There is a right chest tube with a small residual right pneumothorax. Rafael Matias MD Chest X-Ray 06/21/161954 Signed Impressions: Service Date/Time: Tuesday, June 21, 2016 20:04 - CONCLUSION: 1. Patient has small caliber right chest tube. Small residual right pneumothorax. Probable reexpansion pulmonary edema. Rafael Matias MD Chest X-Ray 06/21/161839 Signed Impressions: Service Date/Time: Tuesday, June 21, 2016 18:50 - CONCLUSION: 1. Large right-sided pneumothorax with near complete collapse of the right lung and slight mediastinal shift from [id number]. The emergency department is aware of this finding. Rafael Matias MD Objective Remarks GENERAL: Well-nourished, well-developed patient. On the face mask BiPAP in no acute distress SKIN: Warm and dry. HEAD: Normocephalic. EYES: No scleral icterus. No injection or drainage. NECK: Supple, trachea midline. No JVD or lymphadenopathy. CARDIOVASCULAR: Regular rate and rhythm without murmurs, gallops, or rubs. RESPIRATORY: Breath sounds equal bilaterally. No accessory muscle use. GASTROINTESTINAL: Abdomen soft, non-tender, nondistended. MUSCULOSKELETAL: No cyanosis, or edema. BACK: Nontender without obvious deformity. No CVA tenderness. EXTREMITIES: No clubbing cyanosis or edema A/P Assessment and Plan Pneumothorax - Chest tube placed by ED attending - Another chest tube placed by Dr. Mckinley general surgery/trauma - Continue low wall suction - Repeat CXR a.m. Reexpansion pulmonary edema - Oxygen - BiPAP - Pain control with morphine - Supportive care Bilateral pulmonary infiltrates - ARDS - Worsening chest x-ray - Worsening oxygenation - Discussed with patient intubation, however patient is in no distress and is refusing intubation at this time - Will monitor closely in the ICU - Broad-spectrum antibiotic - Panculture Asthma - History of asthma - IV steroids - Continue DuoNeb's scheduled and when necessary DVT GI prophylaxis - Early aggressive mobilization - Regular diet when off BiPAP Critical Care: The total critical care time was 35 minutes. Time to perform other separately billable procedures was not included in the critical care time. Cash Valencia MD June 22, 2016 22:58
[2016-06-22] MEDS ORDERED: PIPERACIL-TAZO 4.5 GM PREMIX 100 ML IV SCH (23:00)
[2016-06-22] MEDS ORDERED: VANCOMYCIN INJ 1,000 MG in SODIUM CHLOR 0.9% 250 ML INJ 250 ML IV ONE (23:00)
[2016-06-22] MEDS: methylPREDNISolone SOD SUCC 40 MG/1 ML VIAL IV PUSH SCH (23:22)
--- NOTE | 2016-06-22 23:36 | RADRPT ---
EXAM DATE/TIME: 06/22/2016 23:14 [facility] COMPARISON: CHEST SINGLE AP, June 22, 2016, 1:04. INDICATIONS : Shortness of breath. MEDICAL HISTORY : Hypertension. Asthma. SURGICAL HISTORY : None. ENCOUNTER: Subsequent ACUITY: 2 days PAIN SCORE: Non-responsive. LOCATION: Bilateral chest FINDINGS: 2 right-sided thoracostomy tubes. No pneumothorax. Diffuse bilateral pulmonary infiltrates show no ch craig. Heart is mildly enlarged. No effusions observed. CONCLUSION: Unchanged bilateral infiltrates. No pneumothorax. Obie Ho Jr., MD on June 22, 2016 at 23:34 Board Certified Radiologist. This report was verified electronically.
[2016-06-23] VITALS (25 sets, daily range): BP systolic 100–128; BP diastolic 55–82; PULSE 71–120; RESP 16–36; TEMP 97.8–98.4; O2SAT 93–99
[2016-06-23] MEDS: oxyCODONE/ACETAMINOPHEN 10 MG/325 MG TAB PO PRN ×2 (00:07→05:16)
[2016-06-23 00:16] LABS: AMYLASE 15 U/L (25-115)
[2016-06-23] MEDS: FUROSEMIDE 20 MG/2 ML VIAL IV PUSH SCH ×4 (00:19→17:45)
[2016-06-23] MEDS: PIPERACIL-TAZO 4.5 GM PREMIX 100 ML IV SCH ×4 (00:19→17:46)
[2016-06-23] MEDS: AZITHROMYCIN INJ 500 MG in SODIUM CHLOR 0.9% 250 ML INJ 250 ML IV SCH (00:25)
[2016-06-23] MEDS: RESP: ALBUTEROL 2.5 MG/IPRATROPIUM 0.5 MG NEB (SCH) INH ×11 (01:44→22:37)
[2016-06-23] MEDS: MORPHINE SULFATE 4 MG/ML INJ IV PUSH PRN ×5 (03:58→23:29)
[2016-06-23] MEDS: SODIUM CHLORIDE 0.9% FLUSH 10 ML FLUSH PRN (03:59)
[2016-06-23] MEDS: CHLORHEXIDINE GLUCONATE 2 % 1 PACK (2 CLOTHS) TOP SCH (04:00)
[2016-06-23] MEDS: methylPREDNISolone SOD SUCC 40 MG/1 ML VIAL IV PUSH SCH ×3 (05:17→21:32)
[2016-06-23 06:01] LABS: AUTOMATED NEUTROPHIL # 9.5 TH/MM3 (1.8-7.7); BASOPHIL % 0.1 % (0.0-2.0); EOSINOPHIL % 0.1 % (0.0-4.0); HEMATOCRIT 34.7 % (35.0-46.0); HEMO FLAGS DIFF FINAL; LYMPH % 2.7 % (9.0-44.0); LYMPHOCYTE # 0.3 TH/MM3 (1.0-4.8); MEAN CORPUSCULAR HEMOGLOBIN 34.5 PG (27.0-34.0); MEAN CORPUSCULAR HGB CONC 33.2 % (32.0-36.0); MONO % 5.5 % (0.0-8.0); NEUT % 91.6 % (16.0-70.0); PLATELET COUNT 247 TH/MM3 (150-450); RED BLOOD COUNT 3.33 MIL/MM3 (4.00-5.30); RED CELL DISTRIBUTION WIDTH 14.3 % (11.6-17.2); WHITE BLOOD COUNT 10.4 TH/MM3 (4.0-11.0)
[2016-06-23 06:04] LABS: BLOOD GAS BASE EXCESS 4.2 mmol/L (-2-2); BLOOD GAS CARBOXYHEMOGLOBIN 1.3 % (0-4); BLOOD GAS HCO3 29 mmol/L (22-26); BLOOD GAS O2 HGB SATURATION 93 % (90-100); BLOOD GAS PCO2 53 mmHg (38-42); BLOOD GAS PO2 85 mmHg (61-120); BLOOD GAS TOTAL HGB 14.5 G/DL (12.0-16.0); TEMP CORR TO 98.6
[2016-06-23 06:06] LABS: CRITICAL VALUE YES
[2016-06-23 06:07] LABS: DRAW SITE RT RADIAL; FIO2 80 %; NUMBER OF ARTERIAL PUNCTURES 1; OXYGEN DEVICE BIPAP; STAT NO; ULNAR PULSE PRESENT
[2016-06-23 06:16] LABS: ALT (GPT) 26 U/L (10-53); ANION GAP 7 MEQ/L (5-15); AST (GOT) 45 U/L (15-37); BICARBONATE 30.7 MEQ/L (21.0-32.0); BLOOD UREA NITROGEN 9 MG/DL (7-18); CHLORIDE 100 MEQ/L (98-107); GLOMERULAR FILTRATION RATE 105 ML/MIN (>89); POTASSIUM 4.1 MEQ/L (3.5-5.1); SODIUM (NA) 138 MEQ/L (136-145)
[2016-06-23 06:17] LABS: ALKALINE PHOSPHATASE 150 U/L (45-117); TOTAL BILIRUBIN ADULT 0.6 MG/DL (0.2-1.0)
--- NOTE | 2016-06-23 06:59 | RADRPT ---
EXAM DATE/TIME: 06/23/2016 06:15 [facility] COMPARISON: CHEST SINGLE AP, June 22, 2016, 23:14. INDICATIONS : Shortness of breath. MEDICAL HISTORY : None. SURGICAL HISTORY : None. ENCOUNTER: Subsequent ACUITY: 1 week PAIN SCORE: 0/10 LOCATION: Bilateral chest FINDINGS: A single portable frontal view the chest shows no significant change. Diffuse bilateral pulmonary inf iltrates more pronounced on the right. 2 thoracostomy tubes on the right without pneumothorax. Mild c ardiomegaly. No discrete effusions. CONCLUSION: Unchanged diffuse bilateral pulmonary infiltrates. Obie Ho Jr., MD on June 23, 2016 at 6:57 Board Certified Radiologist. This report was verified electronically.
--- NOTE | 2016-06-23 12:41 | HHI.PR ---
Subjective Subjective Notes Resting in bed eating lunch Requiring BiPAP overnight Objective Vitals/I&O Vital Signs Date Time Temp Pulse Resp B/P Pulse Ox O2 Delivery O2 Flow Rate FiO2 06/23/16 12:00 100 06/23/16 12:00 98.1 22 109/57 97 06/23/16 12:00 Bi-Pap 90 06/22/16 07:45 12.00 Labs Laboratory Tests Test 06/22/16 06/23/16 06/23/16 20:14 05:09 05:51 Blood Gas Puncture Site RT RADIAL RT RADIAL Blood Gas Patient Temperature 98.6 98.6 Blood Gas HCO3 28 29 Blood Gas Base Excess 3.0 4.2 Blood Gas Oxygen Saturation 82 93 Arterial Blood pH 7.39 7.36 Arterial Blood Partial 47 53 Pressure CO2 Arterial Blood Partial 50 85 Pressure O2 Arterial Blood Oxygen Content 13.8 19.0 Arterial Blood 1.4 1.3 Carboxyhemoglobin Arterial Blood Methemoglobin 1.3 1.0 Blood Gas Hemoglobin 11.9 14.5 Oxygen Delivery Device BIPAP BIPAP Blood Gas Ventilator Setting 15/10 Blood Gas Inspired Oxygen 80 80 White Blood Count 10.4 Red Blood Count 3.33 Hemoglobin 11.5 Hematocrit 34.7 Mean Corpuscular Volume 104.0 Mean Corpuscular Hemoglobin 34.5 Mean Corpuscular Hemoglobin 33.2 Concent Red Cell Distribution Width 14.3 Platelet Count 247 Mean Platelet Volume 8.4 Neutrophils (%) (Auto) 91.6 Lymphocytes (%) (Auto) 2.7 Monocytes (%) (Auto) 5.5 Eosinophils (%) (Auto) 0.1 Basophils (%) (Auto) 0.1 Neutrophils # (Auto) 9.5 Lymphocytes # (Auto) 0.3 Monocytes # (Auto) 0.6 Eosinophils # (Auto) 0.0 Basophils # (Auto) 0.0 CBC Comment DIFF FINAL Differential Comment Sodium Level 138 Potassium Level 4.1 Chloride Level 100 Carbon Dioxide Level 30.7 Anion Gap 7 Blood Urea Nitrogen 9 Creatinine 0.75 Estimat Glomerular Filtration 105 Rate Random Glucose 138 Calcium Level 8.8 Phosphorus Level 3.9 Magnesium Level 2.0 Total Bilirubin 0.6 Aspartate Amino Transf 45 (AST/SGOT) Alanine Aminotransferase 26 (ALT/SGPT) Alkaline Phosphatase 150 Total Protein 6.9 Albumin 2.5 Date/Time Procedure Status Source Growth 06/23/16 05:09 Aerobic Blood Culture Received Blood Peripheral Pending 5/9/17 05:09 Anaerobic Blood Culture Received Blood Peripheral Pending 06/23/16 00:20 Urine Culture Received Urine Random Urine Pending 06/22/16 01:38 Legionella Antigen - Final Complete Urine Catheterized Urine PRESUMPTIVE NEGATIVE FOR LEGIONELLA P... 06/22/16 01:38 Streptococcus pneumoniae Antigen (M - Final Complete Urine Catheterized Urine PRESUMPTIVE NEGATIVE FOR STREPTOCOCCU... Cardiovascular: Regular Lungs: Other (RIGHT sided crackles at the bases; LEFT clear breath sounds ) Extremities: No edema Narrative Exam RIGHT sided chest tube x 2 to wall suction A/P Assessment and Plan 35 year old female with large RIGHT sided PTX -Chest tube x 2 to wall suction -Diet as tolerated -Pain control -CXR in AM -[facility] following; requiring higher levels of oxygen Attending Statement Pt seen at bedside still with significant o2 requirement ct on sxn will h2o seal c.t. when off bipap Attestation The exam, history, and the medical decision-making described in the above note were completed with the assistance of the mid-level provider. I reviewed and agree with the findings presented. I attest that I had a [id number] encounter with the patient on the same day, and personally performed and documented my assessment and findings in the medical record. Em Olivera June 23, 2016 12:41 Yury Mckinley MD June 28, 2016 18:19
--- NOTE | 2016-06-23 16:45 | HHI.CCPN ---
Subjective Remarks/Hospital Course 35-year-old female with history of asthma presenting to emergency department for evaluation of shortness of breath. EMS states that patient's oxygen saturation was in the low 70s initially, after 2 DuoNeb and O2 administration her sats were assessed at 92%. Her chart the patient was tachycardic with a rate of 115. After nebulizer treatments patient's heart rate was 130. Patient reports coughing up clear mucus, reports nausea but no vomiting. The chest x- ray revealed large right-sided pneumothorax with attention. The chest tube was placed by ED attending with a good lung reexpansion however complicated with reexpansion pulmonary edema. Patient is placed on facemask BiPAP with improving oxygenation. 06/22 2 chest tubes were placed yesterday and today in the morning for unresolving pneumothorax with improvement of x-ray however there is significant worsening of pulmonary infiltrates bilaterally and respiratory distress. Critical care medicine was reconsulted due to hypoxemia and respiratory failure 06/23 The patient has been transitioned onto facemask, no dyspnea noted. Chest tube remain to wall suction. Now off BiPAP patient will resume a regular diet. Objective Vital Signs Date Time Temp Pulse Resp B/P Pulse Ox O2 Delivery O2 Flow Rate FiO2 06/23/16 16:01 95 50 06/23/16 14:47 92 23 124/80 06/23/16 12:00 98.1 06/23/16 12:00 Bi-Pap 06/22/16 07:45 12.00 Intake and Output 06/22/16 06/22/16 06/23/16 08:00 16:00 00:00 Intake Total 1374 ml 494 ml 540 ml Output Total 370 ml 600 ml 100 ml Balance 1004 ml -106 ml 440 ml Result Diagram: 06/23/16 0509 06/23/16 0509 Other Results Microbiology Date/Time Procedure Status Source Growth 06/22/16 01:38 Legionella Antigen - Final Complete Urine Catheterized Urine PRESUMPTIVE NEGATIVE FOR LEGIONELLA P... 06/22/16 01:38 Streptococcus pneumoniae Antigen (M - Final Complete Urine Catheterized Urine PRESUMPTIVE NEGATIVE FOR STREPTOCOCCU... Laboratory Tests Test 06/22/16 06/23/16 20:14 05:51 Blood Gas Puncture Site RT RADIAL RT RADIAL Blood Gas Patient Temperature 98.6 98.6 Blood Gas HCO3 28 mmol/L 29 mmol/L (22-26) (22-26) Blood Gas Base Excess 3.0 mmol/L 4.2 mmol/L (-2-2) (-2-2) Blood Gas Oxygen Saturation 82 % (90-100) 93 % (90-100) Arterial Blood pH 7.39 7.36 (7.380-7.420) (7.380-7.420) Arterial Blood Partial 47 mmHg (38-42) 53 mmHg (38-42) Pressure CO2 Arterial Blood Partial 50 mmHg 85 mmHg Pressure O2 (61-120) (61-120) Arterial Blood Oxygen Content 13.8 Vol % 19.0 Vol % (12.0-20.0) (12.0-20.0) Arterial Blood 1.4 % (0-4) 1.3 % (0-4) Carboxyhemoglobin Arterial Blood Methemoglobin 1.3 % (0-2) 1.0 % (0-2) Blood Gas Hemoglobin 11.9 G/DL 14.5 G/DL (12.0-16.0) (12.0-16.0) Oxygen Delivery Device BIPAP BIPAP Blood Gas Ventilator Setting 15/10 Blood Gas Inspired Oxygen 80 % 80 % Imaging Last 24 hours Impressions Chest X-Ray 06/21/162038 Signed Impressions: Service Date/Time: Tuesday, June 21, 2016 20:40 - CONCLUSION: 1. Increasing airspace disease in the right lung, probably reexpansion pulmonary edema. There is a right chest tube with a small residual right pneumothorax. Rafael Matias MD Chest X-Ray 06/21/161954 Signed Impressions: Service Date/Time: Tuesday, June 21, 2016 20:04 - CONCLUSION: 1. Patient has small caliber right chest tube. Small residual right pneumothorax. Probable reexpansion pulmonary edema. Rafael Matias MD Chest X-Ray 06/21/16 184 Signed Impressions: Service Date/Time: Tuesday, June 21, 2016 18:50 - CONCLUSION: 1. Large right-sided pneumothorax with near complete collapse of the right lung and slight mediastinal shift from [id number]. The emergency department is aware of this finding. Rafael Matias MD Objective Remarks GENERAL: Well-nourished, well-developed patient. On the face mask in no acute distress, no dyspnea noted SKIN: Warm and dry. HEAD: Normocephalic. EYES: No scleral icterus. No injection or drainage. NECK: Supple, trachea midline. No JVD or lymphadenopathy. CARDIOVASCULAR: Regular rate and rhythm without murmurs, gallops, or rubs. RESPIRATORY: Breath sounds equal bilaterally. No accessory muscle use. GASTROINTESTINAL: Abdomen soft, non-tender, nondistended. MUSCULOSKELETAL: No cyanosis, or edema. BACK: Nontender without obvious deformity. No CVA tenderness. EXTREMITIES: No clubbing cyanosis or edema A/P Assessment and Plan Pneumothorax-resolved - 06/22 Chest tube placed by ED attending - 06/22 2nd chest tube placed by Dr. Mckinley general surgery/trauma - Continue low wall suction [id number] - 06/23 chest x-raydiffuse pulmonary infiltrates, mild cardiomegaly, no pneumothorax Reexpansion pulmonary edema - Oxygen - BiPAP, wean to facemask as tolerated - Pain control with morphine - Supportive care Bilateral pulmonary infiltrates - ARDS - Worsening chest x-ray - Worsening oxygenation - Discussed with patient intubation, however patient is in no distress and is refusing intubation at this time - Will monitor closely in the ICU - Broad-spectrum antibiotic-azithromycin, and Zosyn - [id number] results Asthma - History of asthma - IV steroids - Continue DuoNeb's scheduled and when necessary DVT GI prophylaxis - Early aggressive mobilization - Begin Regular diet when off BiPAP Dispo: Discussed with CORRECTIONS IDENTIFICATION TECHNICIAN at bedside This patient remains critically ill with one or more organ systems which are or may become a threat to life. I have spent in excess of 31 minutes discontinuously in the care and management of this patient. This time is exclusive of procedures, and includes, but is not limited to, evaluation of the patient, review of the medical record, discussions with family, consultants, nursing staff, or respiratory therapy, and documentation in the medical record. Physician Kerri Amaro MD June 23, 2016 16:45
--- NOTE | 2016-06-23 17:37 | HHI.PR ---
Subjective Remarks assessment: alert no distress [address] on right Objective Vital Signs Date Time Temp Pulse Resp B/P Pulse Ox O2 Delivery O2 Flow Rate FiO2 06/23/16 16:01 95 50 06/23/16 16:00 89 16 109/57 95 06/23/16 16:00 98 Bi-Pap 90 06/23/16 16:00 100 06/23/16 14:47 92 23 124/80 99 06/23/16 14:01 113 36 108/67 97 06/23/16 14:00 100 27 99 06/23/16 14:00 100 06/23/16 13:00 86 22 105/59 96 06/23/16 12:00 100 06/23/16 12:00 89 16 109/57 95 06/23/16 12:00 98.1 82 22 109/57 97 06/23/16 12:00 98 Bi-Pap 90 06/23/16 11:35 98 60 06/23/16 10:00 78 06/23/16 08:00 78 06/23/16 08:00 98 Bi-Pap 90 06/23/16 08:00 98.0 84 22 100/82 97 06/23/16 07:32 99 70 06/23/16 06:03 75 06/23/16 05:00 79 22 95 06/23/16 04:15 93 Bi-Pap 80 06/23/16 04:00 76 06/23/16 04:00 98.0 76 21 124/60 96 06/23/16 04:00 98 Bi-Pap 90 06/23/16 03:56 98 90 06/23/16 03:00 71 18 115/57 96 06/23/16 02:00 84 22 113/77 96 06/23/16 02:00 84 06/23/16 01:44 94 90 06/23/16 01:00 90 25 128/60 94 06/23/16 00:30 78 23 115/70 94 06/23/16 00:00 79 06/23/16 00:00 94 Bi-Pap 90 06/23/16 00:00 97.8 79 23 110/58 94 06/22/16 23:30 108 26 139/86 90 06/22/16 23:30 89 Bi-Pap 90 06/22/16 23:27 91 80 06/22/16 23:00 80 19 101/56 93 06/22/16 22:30 78 26 121/70 96 06/22/16 22:00 78 26 106/62 93 06/22/16 22:00 78 06/22/16 21:00 83 25 112/70 96 06/22/16 20:30 80 25 107/61 95 06/22/16 20:00 97.6 84 26 104/62 93 06/22/16 20:00 94 Bi-Pap 80 06/22/16 20:00 71 06/22/16 19:33 92 80 06/22/16 19:30 82 26 106/62 91 06/22/16 19:00 89 38 109/55 95 06/22/16 19:00 89 Bi-Pap 70 06/22/16 18:30 93 30 115/59 97 06/22/16 18:01 90 26 117/60 96 06/22/16 18:00 83 06/22/16 18:00 104 31 90 I/O 06/22/16 06/22/16 06/22/16 06/23/16 06/23/16 06/23/16 07:00 15:00 23:00 07:00 15:00 23:00 Intake Total 1374 ml 494 ml 540 ml 770 ml 480 ml Output Total 370 ml 600 ml 100 ml 815 ml 1440 ml Balance 1004 ml -106 ml 440 ml -45 ml -960 ml Intake Oral 0 ml 100 ml 300 ml 120 ml 480 ml IV Total 1374 ml 394 ml 240 ml 650 ml Output Urine Total 250 ml 600 ml 750 ml 1400 ml Chest Tube Drainage Total 120 ml 100 ml 65 ml 40 ml # Voids 5 3 # Bowel Movements 0 0 0 1 Result Diagram: 06/23/16 0509 06/23/16 0509 Objective Remarks GENERAL: SKIN: Warm and dry. HEAD: Atraumatic. Normocephalic. EYES: Pupils equal and round. No scleral icterus. No injection or drainage. ENT: No nasal bleeding or discharge. Mucous membranes pink and moist. NECK: Trachea midline. No JVD. CARDIOVASCULAR: Regular rate and rhythm. RESPIRATORY: No accessory muscle use. Clear to auscultation. Breath sounds equal bilaterally. GASTROINTESTINAL: Abdomen soft, non-tender, nondistended. Hepatic and splenic margins not palpable. MUSCULOSKELETAL: Extremities without clubbing, cyanosis, or edema. No obvious deformities. NEUROLOGICAL: Awake and alert. No obvious cranial nerve deficits. Motor grossly within normal limits. Five out of 5 muscle strength in the arms and legs. Normal speech. PSYCHIATRIC: Appropriate mood and affect; insight and judgment normal. Assessment and Plan Assessment and Plan assessment spontaneous pneumothorax bronchial asthma respiratory failure plan o2 bronchodilator therapy remove chest tubes ingrid Deepak Lucero MD June 23, 2016 17:37
[2016-06-23] MEDS: ENOXAPARIN SODIUM 30 MG/0.3 ML SYRINGE SQ SCH (21:32)
[2016-06-24] VITALS (28 sets, daily range): BP systolic 104–158; BP diastolic 51–86; PULSE 78–115; RESP 16–30; TEMP 98.1–98.4; O2SAT 90–98
[2016-06-24] MEDS: RESP: ALBUTEROL 2.5 MG/IPRATROPIUM 0.5 MG NEB (SCH) INH ×11 (00:29→22:06)
[2016-06-24] MEDS: MORPHINE SULFATE 4 MG/ML INJ IV PUSH PRN ×3 (01:11→13:50)
[2016-06-24] MEDS: PIPERACIL-TAZO 4.5 GM PREMIX 100 ML IV SCH ×4 (01:12→18:30)
[2016-06-24] MEDS: AZITHROMYCIN INJ 500 MG in SODIUM CHLOR 0.9% 250 ML INJ 250 ML IV SCH (01:13)
[2016-06-24] MEDS: oxyCODONE/ACETAMINOPHEN 10 MG/325 MG TAB PO PRN ×2 (02:54→19:50)
[2016-06-24] MEDS: CHLORHEXIDINE GLUCONATE 2 % 1 PACK (2 CLOTHS) TOP SCH (03:00)
[2016-06-24 05:55] LABS: HEMATOCRIT 33.3 % (35.0-46.0); MEAN CELL VOLUME 103.3 FL (80.0-100.0); MEAN CORPUSCULAR HEMOGLOBIN 33.6 PG (27.0-34.0); MEAN CORPUSCULAR HGB CONC 32.6 % (32.0-36.0); PLATELET COUNT 300 TH/MM3 (150-450); RED BLOOD COUNT 3.23 MIL/MM3 (4.00-5.30); RED CELL DISTRIBUTION WIDTH 14.2 % (11.6-17.2); REVIEW FLAG FINAL; WHITE BLOOD COUNT 11.5 TH/MM3 (4.0-11.0)
--- NOTE | 2016-06-24 06:21 | RADRPT ---
EXAM DATE/TIME: 06/24/2016 04:50 [facility] COMPARISON: CHEST SINGLE AP, June 23, 2016, 6:15. INDICATIONS : Shortness of breath. MEDICAL HISTORY : Hypertension. Asthma SURGICAL HISTORY : Tubal ligation. Hysterectomy. ENCOUNTER: Subsequent ACUITY: 1 week PAIN SCORE: Non-responsive. LOCATION: Bilateral chest FINDINGS: A single portable frontal view of the chest shows 2 thoracostomy tubes on the right. No pneumothorax. Bilateral pulmonary infiltrates affecting the right ear greater degree than the left. These are show n some improvement. No effusions. Heart is normal in size. CONCLUSION: 1. No pneumothorax. 2. Some improvement in the bilateral infiltrates. Obie Ho Jr., MD on June 24, 2016 at 6:19 Board Certified Radiologist. This report was verified electronically.
[2016-06-24] MEDS: methylPREDNISolone SOD SUCC 40 MG/1 ML VIAL IV PUSH SCH ×3 (06:32→21:15)
--- NOTE | 2016-06-24 11:20 | MP ---
cc: YURY MCKINLEY MD DATE OF SURGERY: 06/22/2009 PREOPERATIVE DIAGNOSIS Residual persistent pneumothorax. Patient desaturation to 68% off BiPAP. POSTOPERATIVE DIAGNOSIS Residual persistent pneumothorax. Patient desaturation to 68% off BiPAP. PROCEDURE PERFORMED Right-sided chest tube, 10-Guamanian pigtail, at bedside. SURGEON Dr. Yury Mckinley MANAGER ANDROID None. ANESTHESIA Local anesthetic, 5 cc. COMPLICATIONS None. SPECIMEN None. ESTIMATED BLOOD LOSS None. DRAINS Chest tube, 10-[place]ian pigtail. WOUND CLASSIFICATION Clean. INDICATION The patient is a 35-year-old female with concern for spontaneous pneumothorax. She had some shortness of breath several days ago which progressed. She came to the emergency department with severe tension pneumothorax status post right midaxillary line chest tube placement. The patient had improvement with some resolution in her pneumothorax; however, she was noted to have a persistent, approximately 40% residual anterior pneumothorax. The patient also continued to have episodes of desaturation. Decision was made for secondary chest tube placement. DETAILS OF PROCEDURE The patient was in the ICU. She was prepped and draped in the usual sterile fashion to the right chest. A brief timeout was done stating the correct patient, procedure and surgical site, and all were in agreement with this. Attention was directed to the midclavicular line, approximate second interspace, and the area was anesthetized with local anesthetic. A scalpel was used to make a small dilation. Needle was introduced and aspirated obtaining air on aspiration. The introducer and pigtail were advanced through the small incision. The tube was advanced over a guidewire and placed in the thoracic space. On placement there was noted a forbes of air. The pigtail was then placed to suction, Atrium 20 mm. The tube was then secured in place with a 2-0 silk Biopatch. Xeroform was placed and a Tegaderm was placed as well. The patient did have improvement in her O2 saturations and chest x-ray confirmed the expansion and pneumothorax. MD SHANTA Castaneda/ADWOA /11:52 AM /11:04 AM
--- NOTE | 2016-06-24 13:48 | HHI.PR ---
Subjective Subjective Notes On NRB mask Was on BiPAP overnight Objective Vitals/I&O Vital Signs Date Time Temp Pulse Resp B/P Pulse Ox O2 Delivery O2 Flow Rate FiO2 06/24/16 13:00 115 19 150/85 95 06/24/16 12:00 98.1 06/24/16 08:39 Partial Rebreather 12.00 06/24/16 08:00 60 Labs Laboratory Tests Test 06/24/16 04:59 White Blood Count 11.5 Red Blood Count 3.23 Hemoglobin 10.9 Hematocrit 33.3 Mean Corpuscular Volume 103.3 Mean Corpuscular Hemoglobin 33.6 Mean Corpuscular Hemoglobin 32.6 Concent Red Cell Distribution Width 14.2 Platelet Count 300 Mean Platelet Volume 8.3 Date/Time Procedure Status Source Growth 06/23/16 05:09 Aerobic Blood Culture - Preliminary Resulted Blood Peripheral NO GROWTH IN 1 DAY 06/23/16 05:09 Anaerobic Blood Culture - Preliminary Resulted Blood Peripheral NO GROWTH IN 1 DAY 06/23/16 00:20 Urine Culture - Preliminary Resulted Urine Random Urine NO GROWTH IN 24 HOURS. 06/22/16 01:38 Legionella Antigen - Final Complete Urine Catheterized Urine PRESUMPTIVE NEGATIVE FOR LEGIONELLA P... 06/22/16 01:38 Streptococcus pneumoniae Antigen (M - Final Complete Urine Catheterized Urine PRESUMPTIVE NEGATIVE FOR STREPTOCOCCU... Cardiovascular: Regular Lungs: Clear Abdomen: Non-distended, Non-tender Narrative Exam RIGHT sided chest tube x 2 to wall suction A/P Assessment and Plan 35 year old female with large RIGHT sided PTX -Chest tube x 2 to water seal -Diet as tolerated -Pain control -CXR in AM -[facility] following Attending Statement patient seen at bedside chest tube to h2o seal, monitor cxr Attestation The exam, history, and the medical decision-making described in the above note were completed with the assistance of the mid-level provider. I reviewed and agree with the findings presented. I attest that I had a [id number] encounter with the patient on the same day, and personally performed and documented my assessment and findings in the medical record. Em Olivera June 24, 2016 13:48 Yury Mckinley MD July 06, 2016 21:19
--- NOTE | 2016-06-24 16:10 | HHI.CCPN ---
Subjective Remarks/Hospital Course 35-year-old female with history of asthma presenting to emergency department for evaluation of shortness of breath. EMS states that patient's oxygen saturation was in the low 70s initially, after 2 DuoNeb and O2 administration her sats were assessed at 92%. Her chart the patient was tachycardic with a rate of 115. After nebulizer treatments patient's heart rate was 130. Patient reports coughing up clear mucus, reports nausea but no vomiting. The chest x- ray revealed large right-sided pneumothorax with attention. The chest tube was placed by ED attending with a good lung reexpansion however complicated with reexpansion pulmonary edema. Patient is placed on facemask BiPAP with improving oxygenation. 06/22 2 chest tubes were placed yesterday and today in the morning for unresolving pneumothorax with improvement of x-ray however there is significant worsening of pulmonary infiltrates bilaterally and respiratory distress. Critical care medicine was reconsulted due to hypoxemia and respiratory failure 06/23 The patient has been transitioned onto facemask, no dyspnea noted. Chest tube remain to wall suction. Now off BiPAP patient will resume a regular diet. 06/24 The patient has been placed on high flow oxygen nasal cannula. Chest tube has been placed on waterseal, the patient continues to be well oxygenated with FiO2 55%. Objective Vital Signs Date Time Temp Pulse Resp B/P Pulse Ox O2 Delivery O2 Flow Rate FiO2 06/24/16 13:00 96 High Flow Nasal Cannula 25.00 70 06/24/16 13:00 115 19 150/85 06/24/16 12:00 98.1 Intake and Output 06/23/16 06/23/16 06/24/16 08:00 16:00 00:00 Intake Total 770 ml 480 ml 500 ml Output Total 815 ml 1440 ml 1050 ml Balance -45 ml -960 ml -550 ml Result Diagram: 06/24/16 0459 06/23/16 0509 Other Results Microbiology Date/Time Procedure Status Source Growth 06/22/16 01:38 Legionella Antigen - Final Complete Urine Catheterized Urine PRESUMPTIVE NEGATIVE FOR LEGIONELLA P... 06/22/16 01:38 Streptococcus pneumoniae Antigen (M - Final Complete Urine Catheterized Urine PRESUMPTIVE NEGATIVE FOR STREPTOCOCCU... Imaging Last 24 hours Impressions Chest X-Ray 06/21/162038 Signed Impressions: Service Date/Time: Tuesday, June 21, 2016 20:40 - CONCLUSION: 1. Increasing airspace disease in the right lung, probably reexpansion pulmonary edema. There is a right chest tube with a small residual right pneumothorax. Rafael Matias MD Chest X-Ray 06/21/161954 Signed Impressions: Service Date/Time: Tuesday, June 21, 2016 20:04 - CONCLUSION: 1. Patient has small caliber right chest tube. Small residual right pneumothorax. Probable reexpansion pulmonary edema. Rafael Matias MD Chest X-Ray 06/21/161839 Signed Impressions: Service Date/Time: Tuesday, June 21, 2016 18:50 - CONCLUSION: 1. Large right-sided pneumothorax with near complete collapse of the right lung and slight mediastinal shift from [id number]. The emergency department is aware of this finding. Rafael Matias MD Objective Remarks GENERAL: Well-nourished, well-developed patient. On high flow nasal cannula in no acute distress, no dyspnea noted SKIN: Warm and dry. HEAD: Normocephalic. EYES: No scleral icterus. No injection or drainage. NECK: Supple, trachea midline. No JVD or lymphadenopathy. CARDIOVASCULAR: Regular rate and rhythm without murmurs, gallops, or rubs. RESPIRATORY: Breath sounds equal bilaterally. No accessory muscle use. GASTROINTESTINAL: Abdomen soft, non-tender, nondistended. MUSCULOSKELETAL: No cyanosis, or edema. BACK: Nontender without obvious deformity. No CVA tenderness. EXTREMITIES: No clubbing cyanosis or edema Urinary Catheter: Yes Assessment to: Remove Date of Removal: June 24, 2016 A/P Assessment and Plan Pneumothorax-resolved - 06/22 Chest tube placed by ED attending - 06/22 2nd chest tube placed by Dr. Mckinley general surgery/trauma - Continue low wall suction [id number], 06/24 placed to waterseal - 06/24 chest x-rayImprovement in bilateral pulmonary infiltrates Reexpansion pulmonary edema - Oxygen - BiPAP, wean to facemask as tolerated - Pain control with morphine - Supportive care Bilateral pulmonary infiltrates - ARDS -06/24-improvement - Discussed with patient intubation, however patient is in no distress and is refusing intubation at this time - Will monitor closely in the ICU - Broad-spectrum antibiotic-azithromycin, and Zosyn - [id number] results Asthma - History of asthma - IV steroids - Continue DuoNeb's scheduled and when necessary DVT GI prophylaxis - Early aggressive mobilization - Begin Regular diet when off BiPAP Dispo: Discussed with PRESS PIPE INSPECTOR at bedside This patient remains critically ill with one or more organ systems which are or may become a threat to life. I have spent in excess of 32 minutes discontinuously in the care and management of this patient. This time is exclusive of procedures, and includes, but is not limited to, evaluation of the patient, review of the medical record, discussions with family, consultants, nursing staff, or respiratory therapy, and documentation in the medical record. Physician Kerri Amaro MD June 24, 2016 16:10
--- NOTE | 2016-06-24 19:15 | HHI.PR ---
Subjective Remarks assessment: alert no distress [address] on right Objective Vital Signs Date Time Temp Pulse Resp B/P Pulse Ox O2 Delivery O2 Flow Rate FiO2 06/24/16 18:00 98 06/24/16 16:15 83 21 104/51 95 06/24/16 16:15 95 06/24/16 16:00 115 19 150/85 95 06/24/16 16:00 98 06/24/16 16:00 90 26 153/73 94 06/24/16 16:00 94 06/24/16 15:45 98 06/24/16 15:45 86 26 98 06/24/16 15:30 93 06/24/16 15:30 108 25 93 06/24/16 15:15 94 06/24/16 15:15 85 21 94 06/24/16 15:00 94 06/24/16 15:00 107 30 145/81 94 06/24/16 14:45 91 21 94 06/24/16 14:45 94 06/24/16 14:30 95 06/24/16 14:30 106 22 95 06/24/16 14:15 91 22 92 06/24/16 14:15 92 06/24/16 14:00 93 17 151/79 93 06/24/16 14:00 93 06/24/16 14:00 98 06/24/16 13:00 96 High Flow Nasal Cannula 25.00 70 06/24/16 13:00 115 19 150/85 95 06/24/16 12:00 98 06/24/16 12:00 101 28 147/82 96 06/24/16 12:00 97 Partial Non-Rebreather 8.00 60 06/24/16 12:00 98.1 98 18 158/68 97 06/24/16 11:00 97 26 140/70 97 06/24/16 10:00 103 24 127/71 98 06/24/16 10:00 98 06/24/16 09:00 106 27 138/81 90 06/24/16 08:39 93 Partial Rebreather 12.00 06/24/16 08:00 98 06/24/16 08:00 97 Partial Non-Rebreather 8.00 60 06/24/16 08:00 94 22 135/68 97 06/24/16 08:00 98.1 92 18 135/68 97 06/24/16 06:31 16 06/24/16 06:00 98 06/24/16 04:00 98 06/24/16 04:00 98.4 115 16 109/58 96 06/24/16 04:00 16 06/24/16 04:00 93 Partial Non-Rebreather 60 06/24/16 02:20 94 12.00 06/24/16 02:00 104 06/24/16 01:35 96 40 06/24/16 00:36 96 50 06/24/16 00:00 98.3 78 16 112/68 96 06/24/16 00:00 106 06/24/16 00:00 Partial Non-Rebreather 8.00 90 06/24/16 00:00 93 Partial Non-Rebreather 60 06/23/16 22:00 104 06/23/16 20:15 97 Partial Rebreather 12.00 06/23/16 20:00 98.4 120 30 115/55 93 06/23/16 20:00 100 06/23/16 20:00 94 Partial Non-Rebreather 8.00 I/O 06/23/16 06/23/16 06/23/16 06/24/16 06/24/16 06/24/16 06:59 14:59 22:59 06:59 14:59 22:59 Intake Total 770 ml 480 ml 500 ml 530 ml 530 ml Output Total 815 ml 1440 ml 1050 ml 950 ml 850 ml Balance -45 ml -960 ml -550 ml -420 ml -320 ml Intake Oral 120 ml 480 ml 350 ml 400 ml 380 ml IV Total 650 ml 150 ml 130 ml 150 ml Output Urine Total 750 ml 1400 ml 950 ml 950 ml 850 ml Stool Total 100 ml Chest Tube Drainage Total 65 ml 40 ml 0 ml # Bowel Movements 0 1 2 Result Diagram: 06/24/16 0459 06/23/16 0509 Objective Remarks GENERAL: SKIN: Warm and dry. HEAD: Atraumatic. Normocephalic. EYES: Pupils equal and round. No scleral icterus. No injection or drainage. ENT: No nasal bleeding or discharge. Mucous membranes pink and moist. NECK: Trachea midline. No JVD. CARDIOVASCULAR: Regular rate and rhythm. RESPIRATORY: No accessory muscle use. Clear to auscultation. Breath sounds equal bilaterally. GASTROINTESTINAL: Abdomen soft, non-tender, nondistended. Hepatic and splenic margins not palpable. MUSCULOSKELETAL: Extremities without clubbing, cyanosis, or edema. No obvious deformities. NEUROLOGICAL: Awake and alert. No obvious cranial nerve deficits. Motor grossly within normal limits. Five out of 5 muscle strength in the arms and legs. Normal speech. PSYCHIATRIC: Appropriate mood and affect; insight and judgment normal. Assessment and Plan Assessment and Plan assessment spontaneous pneumothorax bronchial asthma respiratory failure plan o2 bronchodilator therapy remove chest tubes ingrid possible Deepak,Deepak Flores MD June 24, 2016 19:15
[2016-06-24] MEDS: SODIUM CHLORIDE 0.9% FLUSH 10 ML FLUSH SCH (21:00)
[2016-06-24] MEDS: ENOXAPARIN SODIUM 30 MG/0.3 ML SYRINGE SQ SCH (21:16)
[2016-06-25] VITALS (15 sets, daily range): BP systolic 129–169; BP diastolic 62–111; PULSE 54–116; RESP 18–30; TEMP 97.9–98.5; O2SAT 92–96
[2016-06-25] MEDS: RESP: ALBUTEROL 2.5 MG/IPRATROPIUM 0.5 MG NEB (SCH) INH ×9 (00:07→21:53)
[2016-06-25] MEDS: PIPERACIL-TAZO 4.5 GM PREMIX 100 ML IV SCH ×4 (00:11→18:41)
[2016-06-25] MEDS: oxyCODONE/ACETAMINOPHEN 10 MG/325 MG TAB PO PRN ×5 (00:12→20:29)
[2016-06-25] MEDS: AZITHROMYCIN INJ 500 MG in SODIUM CHLOR 0.9% 250 ML INJ 250 ML IV SCH (01:00)
[2016-06-25] MEDS: MORPHINE SULFATE 4 MG/ML INJ IV PUSH PRN ×3 (01:35→21:41)
--- NOTE | 2016-06-25 03:08 | RADRPT ---
EXAM DATE/TIME: 06/25/2016 02:04 [place] COMPARISON: CHEST SINGLE AP, June 24, 2016, 4:50. INDICATIONS : Shortness of breath, possible pulmonary disease. MEDICAL HISTORY : Hypertension. Asthma SURGICAL HISTORY : Tubal ligation. Hysterectomy. ENCOUNTER: Subsequent ACUITY: 1 week PAIN SCORE: 3/10 LOCATION: Bilateral chest FINDINGS: A single portable frontal view the chest shows 2 small caliber thoracostomy tubes on the right. Despi te these tubes there is now a recurrent small apical pneumothorax. Diffuse bilateral pulmonary infilt rates have shown some improvement. No effusions. Heart is at the upper limits of normal in terms of s ize. CONCLUSION: 1. New small right apical pneumothorax despite right thoracostomy tubes. 2. Continued improvement in diffuse bilateral pulmonary infiltrates. Obie Ho Jr., MD on June 25, 2016 at 3:06 Board Certified Radiologist. This report was verified electronically.
[2016-06-25] MEDS: CHLORHEXIDINE GLUCONATE 2 % 1 PACK (2 CLOTHS) TOP SCH (03:30)
[2016-06-25 06:01] LABS: HEMATOCRIT 33.6 % (35.0-46.0); MEAN CELL VOLUME 102.4 FL (80.0-100.0); MEAN CORPUSCULAR HEMOGLOBIN 33.8 PG (27.0-34.0); PLATELET COUNT 332 TH/MM3 (150-450); RED BLOOD COUNT 3.28 MIL/MM3 (4.00-5.30); RED CELL DISTRIBUTION WIDTH 14.2 % (11.6-17.2); REVIEW FLAG FINAL; WHITE BLOOD COUNT 9.8 TH/MM3 (4.0-11.0)
[2016-06-25 06:23] LABS: BICARBONATE 32.7 MEQ/L (21.0-32.0); MAGNESIUM 1.9 MG/DL (1.5-2.5); POTASSIUM 3.5 MEQ/L (3.5-5.1)
[2016-06-25] MEDS: methylPREDNISolone SOD SUCC 40 MG/1 ML VIAL IV PUSH SCH ×3 (06:56→21:41)
[2016-06-25] MEDS: SODIUM CHLORIDE 0.9% FLUSH 10 ML FLUSH SCH ×2 (08:29→20:29)
[2016-06-25] MEDS ORDERED: BENZONATATE 100 MG CAP PO PRN (08:30)
--- NOTE | 2016-06-25 10:06 | HHI.PR ---
Subjective Subjective Notes Sitting up in bed No issues overnight Chest tubes x2 back to suction Objective Vitals/I&O Vital Signs Date Time Temp Pulse Resp B/P Pulse Ox O2 Delivery O2 Flow Rate FiO2 06/25/16 08:12 96 High Flow Nasal Cannula 25.00 60 06/25/16 08:00 98.2 62 26 153/71 Labs Laboratory Tests Test 06/25/16 05:05 White Blood Count 9.8 Red Blood Count 3.28 Hemoglobin 11.1 Hematocrit 33.6 Mean Corpuscular Volume 102.4 Mean Corpuscular Hemoglobin 33.8 Mean Corpuscular Hemoglobin 33.0 Concent Red Cell Distribution Width 14.2 Platelet Count 332 Mean Platelet Volume 8.3 Sodium Level 139 Potassium Level 3.5 Chloride Level 97 Carbon Dioxide Level 32.7 Anion Gap 9 Blood Urea Nitrogen 5 Creatinine 0.54 Estimat Glomerular Filtration 154 Rate Random Glucose 117 Calcium Level 9.3 Phosphorus Level 3.7 Magnesium Level 1.9 Date/Time Procedure Status Source Growth 06/23/16 05:09 Aerobic Blood Culture - Preliminary Resulted Blood Peripheral NO GROWTH IN 1 DAY 06/23/16 05:09 Anaerobic Blood Culture - Preliminary Resulted Blood Peripheral NO GROWTH IN 1 DAY 06/23/16 00:20 Urine Culture - Final Complete Urine Random Urine NO GROWTH IN 48 HOURS. 06/22/16 01:38 Legionella Antigen - Final Complete Urine Catheterized Urine PRESUMPTIVE NEGATIVE FOR LEGIONELLA P... 06/22/16 01:38 Streptococcus pneumoniae Antigen (M - Final Complete Urine Catheterized Urine PRESUMPTIVE NEGATIVE FOR STREPTOCOCCU... Cardiovascular: Regular Lungs: Clear Abdomen: Non-distended, Non-tender Extremities: No edema Narrative Exam RIGHT sided chest tube x 2 to wall suction A/P Assessment and Plan 35 year old female with large RIGHT sided PTX -Chest tube x 2 back to wall suction -Will get CTS consult -Diet as tolerated -Pain control -CXR in AM -[facility] following Attending Statement patient seen at bedside ptx increased ct. back to sxn consult cts Attestation The exam, history, and the medical decision-making described in the above note were completed with the assistance of the mid-level provider. I reviewed and agree with the findings presented. I attest that I had a [id number] encounter with the patient on the same day, and personally performed and documented my assessment and findings in the medical record. Em Olivera 11, 2017 10:06 Yury Mckinley MD July 06, 2016 21:39
--- NOTE | 2016-06-25 10:54 | PD.CONS ---
History of Present Illness Service CT Surgery Consult Requested By Dr. Mckinley Reason for Consult Persistent right pneumothorax, bilateral interstitial infiltrates with hypoxia Primary Care Physician No Primary Care Physician Diagnoses: (1) Pneumothorax, right (2) Pulmonary infiltrate (3) Hypoxia History of Present Illness 35y/o female presents with dyspnea, profound hypoxia, and right pneumothorax. Her hypoxia is out of proportion to her pneumothorax and she has bilateral infiltrates. The etiology of this process is not clear. She has had 2 pneumothorax pigtail catheters placed with re-expansion as of yesterday. Her CXR today shows apical pneumothorax again. She remains on high FiO2 and dyspneic. She is a smoker, but denies recent illness or constitutional symptoms. Review of Systems Constitutional: COMPLAINS OF: Fatigue Endocrine: DENIES: Abnorml menstrual pattern, Heat/cold intolerance, Polydipsia , Polyuria, Polyphagia Eyes: DENIES: Blurred vision, Diplopia, Eye inflammation, Eye pain, Vision loss , Photosensitivity, Double Vision Ears, nose, mouth, throat: DENIES: Tinnitus, Hearing loss, Vertigo, Nasal discharge, Oral lesions, Throat pain, Hoarseness, Ear Pain, Running Nose, Epistaxis, Sinus Pain, Toothache, Odynophagia Respiratory: COMPLAINS OF: Cough, Shortness of breath Cardiovascular: DENIES: Chest pain, Palpitations, Syncope, Dyspnea on Exertion , PND, Lower Extremity Edema, Orthopnea, Claudication Gastrointestinal: DENIES: Abdominal pain, Black stools, Bloody stools, Constipation, Diarrhea, Nausea, Vomiting, Difficulty Swallowing, Anorexia Genitourinary: DENIES: Abnormal vaginal bleeding, Dysmenorrhea, Dyspareunia, Sexual dysfunction, Urinary frequency, Urinary incontinence, Urgency, Hematuria , Dysuria, Nocturia, Vaginal discharge Musculoskeletal: DENIES: Joint pain, Muscle aches, Stiffness, Joint Swelling, Back pain, Neck pain Integumentary: DENIES: Abnormal pigmentation, Pruritus, Rash, Nail changes, Breast masses, Breast skin changes, Nipple discharge Hematologic/lymphatic: DENIES: Bruising, Lymphadenopathy Immunologic/allergic: DENIES: Eczema, Urticaria Neurologic: DENIES: Abnormal gait, Headache, Localized weakness, Paresthesias, Seizures, Speech Problems, Tremor, Poor Balance Psychiatric: DENIES: Anxiety, Confusion, Mood changes, Depression, Hallucinations, Agitation, Suicidal Ideation, Homicidal Ideation, Delusions Past Family Social History Allergies: Coded Allergies: No Known Allergies (Unverified , 06/21/16) Past Medical History Past Medical History Asthma Hypertension Anxiety Past Surgical History None Reported Medications Reported Meds & Active Scripts Active No Active Prescriptions or Reported Medications Active Ordered Medications Current Medications Medications (Trade) Dose Ordered Sig/Wandy Route Start Time Stop Time Status Last Admin (Morphine Inj) 2 mg Q2H PRN IV PUSH 06/21/16 22:00 06/25/16 01:35 (NS Flush) 2 ml UNSCH PRN .XX 06/21/16 22:00 06/23/16 03:59 (NS Flush) 2 ml BID .XX 06/22/16 09:00 06/25/16 08:29 (Tylenol) 650 mg Q6H PRN PO 06/21/16 22:00 (Ativan Inj) 1 mg Q4H PRN IV 06/21/16 22:00 06/22/16 08:53 (Zofran Inj) 4 mg Q6H PRN IV 06/21/16 22:00 06/22/16 01:13 (Reglan Inj) 10 mg Q6H PRN IV 06/21/16 22:00 (Ambien) 5 mg HS PRN PO 06/21/16 22:00 (Lovenox Inj) 30 mg Q24H SQ 06/21/16 22:00 06/24/16 21:16 Miscellaneous Information 1 Q361D XX 06/21/16 22:00 06/21/16 23:10 (Chlorhexidine 2% Cloth) 3 pack Taper DAILY@04 TOP 06/22/16 04:00 06/18/17 03:59 06/25/16 03:30 Chlorhexidine Gluconate 3 pack 3 pack UNSCH PRN TOP 06/21/16 22:00 Potassium Chloride 100 ml @ 50 mls/hr Q2H PRN IV 06/21/16 23:15 (KCl 20 Meq Premix Inj) 100 ml @ 50 mls/hr Q2H PRN IV 06/21/16 23:15 06/22/16 03:18 Potassium Bicarb/ Potassium Chloride 50 meq 50 meq UNSCH PRN PO 06/21/16 23:15 Potassium Chloride 100 ml @ 25 mls/hr UNSCH PRN IV 06/21/16 23:15 Potassium Chloride 100 ml @ 50 mls/hr Q2H PRN IV 06/21/16 23:15 (Magnesium Sulfate Inj/NS Inj) 100 ml @ 50 mls/hr UNSCH PRN IV 06/21/16 23:15 Magnesium Oxide 800 mg 800 mg UNSCH PRN PO 06/21/16 23:15 (Magnesium Sulfate Inj/NS Inj) 100 ml @ 50 mls/hr UNSCH PRN IV 06/21/16 23:15 Potassium Phosphate 2000 mg 2,000 mg Q4H PRN PO 06/21/16 23:15 (Sodium Phosphate Inj/NS 250 ml Inj) 250 ml @ 42 mls/hr UNSCH PRN IV 06/21/16 23:15 Potassium Phosphate 2000 mg 2,000 mg UNSCH PRN PO/TUBE 06/21/16 23:15 Piperacillin Sod/ Tazobactam Sod 100 ml @ 200 mls/hr Q6H IV 06/22/16 00:30 06/25/16 06:56 (Zithromax Inj/ NS 250 ml Inj) 250 ml @ 250 mls/hr Q24H IV 06/22/16 01:00 06/25/16 01:00 (Percocet 10-325 Mg) 1 tab Q4H PRN PO 06/22/16 23:00 06/25/16 08:29 (SoluMEDROL INJ) 40 mg Q8HR IV PUSH 06/22/16 23:00 06/25/16 06:56 (Tessalon) 100 mg TID PRN PO 06/25/16 08:30 Family History unremarkable Social History at least 1/2 ppd for ~20 yrs Denies ETOH, drugs Physical Exam Vital Signs Vital Signs Date Time Temp Pulse Resp B/P Pulse Ox O2 Delivery O2 Flow Rate FiO2 06/25/16 10:00 72 06/25/16 08:12 96 High Flow Nasal Cannula 25.00 60 06/25/16 08:00 98.2 62 26 153/71 96 06/25/16 08:00 94 60 06/25/16 08:00 62 06/25/16 06:00 67 06/25/16 06:00 68 22 149/74 06/25/16 05:00 64 22 144/83 06/25/16 04:00 82 06/25/16 04:00 98.5 62 20 159/73 95 06/25/16 04:00 94 Nasal Cannula 15.00 60 06/25/16 02:00 74 26 129/62 94 06/25/16 02:00 101 06/25/16 00:00 92 06/25/16 00:00 94 Nasal Cannula 15.00 60 06/25/16 00:00 98.4 81 30 168/80 94 06/24/16 22:00 92 06/24/16 22:00 92 26 131/71 93 06/24/16 20:49 30 06/24/16 20:10 95 High Flow Nasal Cannula 25.00 60 06/24/16 20:00 98.3 90 24 152/86 93 06/24/16 20:00 94 Nasal Cannula 15.00 60 06/24/16 20:00 89 06/24/16 18:00 98 06/24/16 16:15 83 21 104/51 95 06/24/16 16:15 95 06/24/16 16:00 115 19 150/85 95 06/24/16 16:00 98 06/24/16 16:00 90 26 153/73 94 06/24/16 16:00 94 06/24/16 15:45 98 06/24/16 15:45 86 26 98 06/24/16 15:30 93 06/24/16 15:30 108 25 93 06/24/16 15:15 94 06/24/16 15:15 85 21 94 06/24/16 15:00 94 06/24/16 15:00 107 30 145/81 94 06/24/16 14:45 91 21 94 06/24/16 14:45 94 06/24/16 14:30 95 06/24/16 14:30 106 22 95 06/24/16 14:15 91 22 92 06/24/16 14:15 92 06/24/16 14:00 93 17 151/79 93 06/24/16 14:00 93 06/24/16 14:00 98 06/24/16 13:00 96 High Flow Nasal Cannula 25.00 70 06/24/16 13:00 115 19 150/85 95 06/24/16 12:00 98 06/24/16 12:00 101 28 147/82 96 06/24/16 12:00 97 Partial Non-Rebreather 8.00 60 06/24/16 12:00 98.1 98 18 158/68 97 06/24/16 11:00 97 26 140/70 97 Physical Exam GENERAL: This is a well-nourished, well-developed patient, in no apparent distress. SKIN: No rashes, ecchymoses or lesions. Cool and dry. HEAD: Atraumatic. Normocephalic. No temporal or scalp tenderness. EYES: Pupils equal round and reactive. Extraocular motions intact. No scleral icterus. No injection or drainage. ENT: Nose without bleeding, purulent drainage or septal hematoma. Throat without erythema, tonsillar hypertrophy or exudate. Uvula midline. Airway patent. NECK: Trachea midline. No JVD or lymphadenopathy. Supple, nontender, no meningeal signs. CARDIOVASCULAR: Regular rate and rhythm without murmurs, gallops, or rubs. RESPIRATORY: few crackles bilaterally, few wheezes bilaterally GASTROINTESTINAL: Abdomen soft, non-tender, nondistended. No hepato-splenomegaly , or palpable masses. No guarding. MUSCULOSKELETAL: Extremities without clubbing, cyanosis, or edema. No joint tenderness, effusion, or edema noted. No calf tenderness. Negative Homans sign bilaterally. NEUROLOGICAL: Awake and alert. Cranial nerves II through XII intact. Motor and sensory grossly within normal limits. Five out of 5 muscle strength in all muscle groups. Normal speech. Laboratory Laboratory Tests Test 06/25/16 05:05 White Blood Count 9.8 Red Blood Count 3.28 Hemoglobin 11.1 Hematocrit 33.6 Mean Corpuscular Volume 102.4 Mean Corpuscular Hemoglobin 33.8 Mean Corpuscular Hemoglobin 33.0 Concent Red Cell Distribution Width 14.2 Platelet Count 332 Mean Platelet Volume 8.3 Sodium Level 139 Potassium Level 3.5 Chloride Level 97 Carbon Dioxide Level 32.7 Anion Gap 9 Blood Urea Nitrogen 5 Creatinine 0.54 Estimat Glomerular Filtration 154 Rate Random Glucose 117 Calcium Level 9.3 Phosphorus Level 3.7 Magnesium Level 1.9 Date/Time Procedure Status Source Growth 06/23/16 05:09 Aerobic Blood Culture - Preliminary Resulted Blood Peripheral NO GROWTH IN 1 DAY 06/23/16 05:09 Anaerobic Blood Culture - Preliminary Resulted Blood Peripheral NO GROWTH IN 1 DAY 06/23/16 00:20 Urine Culture - Final Complete Urine Random Urine NO GROWTH IN 48 HOURS. 06/22/16 01:38 Legionella Antigen - Final Complete Urine Catheterized Urine PRESUMPTIVE NEGATIVE FOR LEGIONELLA P... 06/22/16 01:38 Streptococcus pneumoniae Antigen (M - Final Complete Urine Catheterized Urine PRESUMPTIVE NEGATIVE FOR STREPTOCOCCU... Result Diagram: 06/25/16 0505 06/25/16 0505 Imaging Last Impressions Chest X-Ray 06/25/16 0600 Signed Impressions: Service Date/Time: June 02:04 - CONCLUSION: 1. New small right apical pneumothorax despite right thoracostomy tubes. 2. Continued improvement in diffuse bilateral pulmonary infiltrates. Obie Ho Jr., MD Chest CT 06/21/16 0000 Signed Impressions: Service Date/Time: Tuesday, June 21, 2016 22:53 - CONCLUSION: 1. Large right-sided pneumothorax despite small caliber chest tube. The chest tube is coiled within the major fissure. Consider either a second chest tube more anteriorly or consider having interventional radiology redirect existing tube more anteriorly. 2. Bilateral pulmonary consolidation. Pulmonary edema versus infectious infiltrate. Obie Ho Jr., MD Course 35 y/o female with small persistent right PTX with 2 pigtails in right chest. She is very hypoxic which is not explained by her pneumothorax. Assessment and Plan Problem List: (1) Pneumothorax, right Status: Acute (2) Pulmonary infiltrate Status: Acute (3) Hypoxia Status: Acute Assessment and Plan 35 y/o female presents with bilateral interstitial infiltrates, right pneumothorax, and hypoxia/acute respiratory failure. She has responded to right chest pigtail placement x 2 with re-expansion on suction. Her CXR this morning was on water seal with recurrence of the apical pneumothorax. She is improved with antibiotics and steroid tx as well with decreased oxygen demands. The etiology of her pulmonary disease is not clear. At this time, I would recommend returning the chest tube to 20 cm suction and leaving it there until her oxygen demands are improved. Repeat CXR to assure improvement in the apical pneumothorax also. If she does not improve, I would recommend VATS for apical pleuradesis, chest tube placement, and lung biopsy. Will follow. Bety Curtis MD June 25, 2016 10:54
--- NOTE | 2016-06-25 12:06 | RADRPT ---
EXAM DATE/TIME: 06/25/2016 11:32 [facility] COMPARISON: CHEST SINGLE AP, June 25, 2016, 2:04. INDICATIONS : Short of breath. MEDICAL HISTORY : asthma SURGICAL HISTORY : chest tube ENCOUNTER: Initial ACUITY: 4 - 6 days PAIN SCORE: 0/10 LOCATION: Bilateral chest FINDINGS: There is a small caliber right chest tube superiorly and inferiorly in the right hemithorax. Tiny res idual right apical pneumothorax improved from earlier exam. Stable bilateral airspace disease. CONCLUSION: 1. Decrease in size of right pneumothorax with 2 small right chest tubes present. No new infiltrate. Rafael Matias MD on June 25, 2016 at 12:04 Board Certified Radiologist. This report was verified electronically.
[2016-06-25] MEDS: SODIUM CHLORIDE 0.9% FLUSH 10 ML FLUSH PRN ×2 (12:28→13:20)
--- NOTE | 2016-06-25 17:18 | HHI.CCPN ---
Subjective Remarks/Hospital Course 35-year-old female with history of asthma presenting to emergency department for evaluation of shortness of breath. EMS states that patient's oxygen saturation was in the low 70s initially, after 2 DuoNeb and O2 administration her sats were assessed at 92%. Her chart the patient was tachycardic with a rate of 115. After nebulizer treatments patient's heart rate was 130. Patient reports coughing up clear mucus, reports nausea but no vomiting. The chest x- ray revealed large right-sided pneumothorax with attention. The chest tube was placed by ED attending with a good lung reexpansion however complicated with reexpansion pulmonary edema. Patient is placed on facemask BiPAP with improving oxygenation. 06/22 2 chest tubes were placed yesterday and today in the morning for unresolving pneumothorax with improvement of x-ray however there is significant worsening of pulmonary infiltrates bilaterally and respiratory distress. Critical care medicine was reconsulted due to hypoxemia and respiratory failure 06/23 The patient has been transitioned onto facemask, no dyspnea noted. Chest tube remain to wall suction. Now off BiPAP patient will resume a regular diet. 06/24: The patient has been placed on high flow oxygen nasal cannula. Chest tube has been placed on waterseal, the patient continues to be well oxygenated with FiO2 55%. 06/25: Afebrile. Chest tube placed back to wall suction secondary to apical pneumothorax. Will continue to wall suction. The patient has been weaned to FiO2 of 45%, with O2 sats duration of 94-95%. Pain from chest tube site well controlled. Patient complained of coughing, Tessalon Pearls provided with resolution of symptoms. Objective Vital Signs Date Time Temp Pulse Resp B/P Pulse Ox O2 Delivery O2 Flow Rate FiO2 06/25/16 16:00 116 06/25/16 16:00 92 45 06/25/16 16:00 98.5 24 169/111 06/25/16 08:12 High Flow Nasal Cannula 25.00 Intake and Output 06/24/16 06/24/16 06/24/16 07:59 15:59 23:59 Intake Total 530 ml 530 ml 640 ml Output Total 950 ml 850 ml Balance -420 ml -320 ml 640 ml Result Diagram: 06/25/16 0505 06/25/16 0505 Other Results Microbiology Date/Time Procedure Status Source Growth 06/23/16 00:20 Urine Culture - Final Complete Urine Random Urine NO GROWTH IN 48 HOURS. Imaging Last 24 hours Impressions Chest X-Ray 06/21/[id number] Signed Impressions: Service Date/Time: Tuesday, June 21, 2016 20:40 - CONCLUSION: 1. Increasing airspace disease in the right lung, probably reexpansion pulmonary edema. There is a right chest tube with a small residual right pneumothorax. Rafael Matias MD Chest X-Ray 06/21/[id number] Signed Impressions: Service Date/Time: Tuesday, June 21, 2016 20:04 - CONCLUSION: 1. Patient has small caliber right chest tube. Small residual right pneumothorax. Probable reexpansion pulmonary edema. Rafael Matias MD Chest X-Ray 06/21/[id number] Signed Impressions: Service Date/Time: Tuesday, June 21, 2016 18:50 - CONCLUSION: 1. Large right-sided pneumothorax with near complete collapse of the right lung and slight mediastinal shift from [id number]. The emergency department is aware of this finding. Rafael Matias MD Objective Remarks GENERAL: Well-nourished, well-developed patient. On high flow nasal cannula at .45% in no acute distress, no dyspnea noted SKIN: Warm and dry. HEAD: Normocephalic. EYES: No scleral icterus. No injection or drainage. NECK: Supple, trachea midline. No JVD or lymphadenopathy. CARDIOVASCULAR: Regular rate and rhythm without murmurs, gallops, or rubs. RESPIRATORY: Breath sounds equal bilaterally. No accessory muscle use. Right chest tubes reinforced dressing. No air leak GASTROINTESTINAL: Abdomen soft, non-tender, nondistended. MUSCULOSKELETAL: No cyanosis, or edema. BACK: Nontender without obvious deformity. No CVA tenderness. EXTREMITIES: No clubbing cyanosis or edema Date of Removal: June 24, 2016 A/P Assessment and Plan Pneumothorax-resolved - 06/22 Chest tube placed by ED attending - 06/22 2nd chest tube placed by Dr. Mckinley general surgery/trauma - Continue low wall suction [id number], 06/24 placed to waterseal - 06/24 chest x-rayImprovement in bilateral pulmonary infiltrates -06/25-the patient chest tube was placed to waterseal yesterday with recurrence of apical pneumothorax, will resume 20 cm wall suction Reexpansion pulmonary edema - Oxygen - BiPAP, wean to facemask as tolerated - Pain control with morphine - Supportive care -Tessalon Perles 3 times a day PRN for cough Bilateral pulmonary infiltrates - ARDS -06/24-improvement - Discussed with patient intubation, however patient is in no distress and is refusing intubation at this time - Will monitor closely in the ICU - Broad-spectrum antibiotic-azithromycin, and Zosyn - [id number] results Asthma - History of asthma - IV steroids - Continue DuoNeb's scheduled and when necessary DVT GI prophylaxis - Early aggressive mobilization - Begin Regular diet when off BiPAP Dispo: Discussed with patient and OIL EXPELLER OPERATOR at bedside Level 3 Physician Kerri Amaro MD June 25, 2016 17:18
[2016-06-25] MEDS: ENOXAPARIN SODIUM 30 MG/0.3 ML SYRINGE SQ SCH (21:41)
[2016-06-26] VITALS (14 sets, daily range): BP systolic 141–170; BP diastolic 61–92; PULSE 49–75; RESP 20–29; TEMP 97.6–98.5; O2SAT 93–99
[2016-06-26] MEDS: RESP: ALBUTEROL 2.5 MG/IPRATROPIUM 0.5 MG NEB (SCH) INH ×6 (00:18→20:23)
[2016-06-26] MEDS: AZITHROMYCIN INJ 500 MG in SODIUM CHLOR 0.9% 250 ML INJ 250 ML IV SCH (00:30)
[2016-06-26] MEDS: oxyCODONE/ACETAMINOPHEN 10 MG/325 MG TAB PO PRN ×4 (00:30→21:05)
[2016-06-26] MEDS: PIPERACIL-TAZO 4.5 GM PREMIX 100 ML IV SCH ×5 (00:30→23:21)
[2016-06-26] MEDS: CHLORHEXIDINE GLUCONATE 2 % 1 PACK (2 CLOTHS) TOP SCH (02:48)
[2016-06-26] MEDS: MORPHINE SULFATE 4 MG/ML INJ IV PUSH PRN (04:06)
--- NOTE | 2016-06-26 05:33 | RADRPT ---
EXAM DATE/TIME: 06/26/2016 02:57 [facility] COMPARISON: CHEST SINGLE AP, June 25, 2016, 11:32. INDICATIONS : Shortness of breath. MEDICAL HISTORY : Hypertension. Asthma. SURGICAL HISTORY : None. ENCOUNTER: Subsequent ACUITY: 4 - 6 days PAIN SCORE: Non-responsive. LOCATION: Bilateral chest FINDINGS: There is a very tiny right apical pneumothorax with 1-2 mm of separation at the apex. The [address] tubes remain in place. No change in the bilateral pulmonary infiltrates. The heart size is stable. No pleural effusions. No significant interval change as compared to the prior study. CONCLUSION: Very tiny right apical pneumothorax. No significant change compared to the prior study. Yaron Hurst MD on June 26, 2016 at 5:29 Board Certified Radiologist. This report was verified electronically.
[2016-06-26] MEDS: methylPREDNISolone SOD SUCC 40 MG/1 ML VIAL IV PUSH SCH ×3 (05:45→21:04)
--- NOTE | 2016-06-26 08:24 | HHI.CCPN ---
Subjective Remarks/Hospital Course 35-year-old female with history of asthma presenting to emergency department for evaluation of shortness of breath. EMS states that patient's oxygen saturation was in the low 70s initially, after 2 DuoNeb and O2 administration her sats were assessed at 92%. Her chart the patient was tachycardic with a rate of 115. After nebulizer treatments patient's heart rate was 130. Patient reports coughing up clear mucus, reports nausea but no vomiting. The chest x- ray revealed large right-sided pneumothorax with attention. The chest tube was placed by ED attending with a good lung reexpansion however complicated with reexpansion pulmonary edema. Patient is placed on facemask BiPAP with improving oxygenation. 06/22 2 chest tubes were placed yesterday and today in the morning for unresolving pneumothorax with improvement of x-ray however there is significant worsening of pulmonary infiltrates bilaterally and respiratory distress. Critical care medicine was reconsulted due to hypoxemia and respiratory failure 06/23 The patient has been transitioned onto facemask, no dyspnea noted. Chest tube remain to wall suction. Now off BiPAP patient will resume a regular diet. 06/24: The patient has been placed on high flow oxygen nasal cannula. Chest tube has been placed on waterseal, the patient continues to be well oxygenated with FiO2 55%. 06/25: Afebrile. Chest tube placed back to wall suction secondary to apical pneumothorax. Will continue to wall suction. The patient has been weaned to FiO2 of 45%, with O2 sats duration of 94-95%. Pain from chest tube site well controlled. Patient complained of coughing, Tessalon Pearls provided with resolution of symptoms. 06/26 No acute events overnight. Remains on high flow oxygen. Afebrile.Chest tube to wall suction. Objective Vital Signs Date Time Temp Pulse Resp B/P Pulse Ox O2 Delivery O2 Flow Rate FiO2 06/26/16 06:00 55 06/26/16 04:00 98.0 22 141/61 93 06/26/16 04:00 Nasal Cannula 40 Humidified 06/25/16 21:55 20.00 Intake and Output 06/25/16 06/25/16 06/26/16 08:00 16:00 00:00 Intake Total 380 ml 755 ml 1121 ml Output Total 10 ml Balance 380 ml 755 ml 1111 ml Result Diagram: 06/25/16 0505 06/25/16 0505 Imaging Last Impressions Chest X-Ray 06/26/16 0600 Signed Impressions: Service Date/Time: Sunday, June 26, 2016 02:57 - CONCLUSION: Very tiny right apical pneumothorax. No significant change compared to the prior study. Yaron Hurst MD Chest CT 06/21/16 0000 Signed Impressions: Service Date/Time: Tuesday, June 21, 2016 22:53 - CONCLUSION: 1. Large right-sided pneumothorax despite small caliber chest tube. The chest tube is coiled within the major fissure. Consider either a second chest tube more anteriorly or consider having interventional radiology redirect existing tube more anteriorly. 2. Bilateral pulmonary consolidation. Pulmonary edema versus infectious infiltrate. Obie Ho Jr., MD Objective Remarks GENERAL: Well-nourished, well-developed patient. On high flow nasal cannula at .45% in no acute distress, no dyspnea noted SKIN: Warm and dry. HEAD: Normocephalic. EYES: No scleral icterus. No injection or drainage. NECK: Supple, trachea midline. No JVD or lymphadenopathy. CARDIOVASCULAR: Regular rate and rhythm without murmurs, gallops, or rubs. RESPIRATORY: Breath sounds equal bilaterally. No accessory muscle use. Right chest tubes reinforced dressing. No air leak GASTROINTESTINAL: Abdomen soft, non-tender, nondistended. MUSCULOSKELETAL: No cyanosis, or edema. BACK: Nontender without obvious deformity. No CVA tenderness. EXTREMITIES: No clubbing cyanosis or edema Date of Removal: June 24, 2016 A/P Assessment and Plan 1)Resp Insuff 2) Pneumothorax-Tiny apical PTX on CXR this morning 3) Reexpansion pulmonary edema 4)Hx Asthma 5)Anemia Neuro: Awake, alert Pulm: Continue to wean down oxygen as ben keep sat >92% Bronchodilators, Solumderol 40mg IV Q8 - 06/22 Chest tube placed by ED attending - 06/22 2nd chest tube placed by Dr. Mckinley general surgery/trauma - Continue low wall suction [id number], -CTS surgery is following- if no improvements consider VATS for apical pleurodesis and lung biopsy. CV: Monitor HR and BP keep MAP>65mmHg :Monitor renal function, I/O's, electrolytes replacement per protocol. GI: On PO diet ID: Continue abx ( Zosyn, Zithromax) Monitor for signs of infections ( fever, WBC). Check sputum cx, WBC trending down. Strep pneumonia and Legionella urinary Ag negative on 06/22 Heme: Monitor CBC Endo: SSI if needed for glycemic control No need for GI prophylaxis- on PO diet DVT prophylaxis- On Lovenox SQ Level 3 Level 3 Masood Mejia MD June 26, 2016 08:24
[2016-06-26 09:09] LABS: AUTOMATED NEUTROPHIL # 9.7 TH/MM3 (1.8-7.7); BASOPHIL % 0.1 % (0.0-2.0); HEMATOCRIT 34.9 % (35.0-46.0); LYMPH % 5.4 % (9.0-44.0); LYMPHOCYTE # 0.6 TH/MM3 (1.0-4.8); MEAN CELL VOLUME 102.6 FL (80.0-100.0); MEAN CORPUSCULAR HEMOGLOBIN 33.5 PG (27.0-34.0); MEAN CORPUSCULAR HGB CONC 32.7 % (32.0-36.0); NEUT % 89.5 % (16.0-70.0); PLATELET COUNT 376 TH/MM3 (150-450); RED CELL DISTRIBUTION WIDTH 14.5 % (11.6-17.2); WHITE BLOOD COUNT 10.9 TH/MM3 (4.0-11.0)
[2016-06-26 09:13] LABS: HEMO FLAGS AUTO DIFF
[2016-06-26 09:46] LABS: BANDS 13 % (0-6); METAMYELOCYTES 3 % (0-1); MYELOCYTES 3 % (0-0); NEUTROPHIL # MANUAL DIFF 10.1 TH/MM3 (1.8-7.7); PLATELET ESTIMATE SMEAR NORMAL (NORMAL); POLYS (SEG NEUTROPHILS) 74 % (16-70); SCAN/DIFF FINAL DIFF MANUAL; WBC DIFF SAMPLE 100
[2016-06-26 09:47] LABS: PLATELET MORPHOLOGY NORMAL (NORMAL)
[2016-06-26 09:50] LABS: ANION GAP 9 MEQ/L (5-15); AST (GOT) 19 U/L (15-37); BICARBONATE 29.7 MEQ/L (21.0-32.0); BLOOD UREA NITROGEN 8 MG/DL (7-18); CHLORIDE 100 MEQ/L (98-107); GLOMERULAR FILTRATION RATE 131 ML/MIN (>89); MAGNESIUM 1.7 MG/DL (1.5-2.5); POTASSIUM 3.9 MEQ/L (3.5-5.1); SODIUM (NA) 139 MEQ/L (136-145)
[2016-06-26 09:53] LABS: ALKALINE PHOSPHATASE 87 U/L (45-117); ALT (GPT) 19 U/L (10-53); TOTAL BILIRUBIN ADULT 0.2 MG/DL (0.2-1.0)
--- NOTE | 2016-06-26 10:03 | PD.CAR.PN ---
CVT Progress Note Subjective/Hospital Course: Right apical PTX improved. Continues on high flow O2 Objective: Vital Signs Date Time Temp Pulse Resp B/P Pulse Ox O2 Delivery O2 Flow Rate FiO2 06/26/16 08:04 97 High Flow Nasal Cannula 20.00 40 06/26/16 06:00 55 06/26/16 04:00 98.0 49 22 141/61 93 06/26/16 04:00 Nasal Cannula 40 Humidified 06/26/16 04:00 49 06/26/16 02:00 63 06/26/16 00:00 97.6 75 20 149/72 94 06/26/16 00:00 65 06/26/16 00:00 Nasal Cannula 40 Humidified 06/25/16 22:00 54 06/25/16 21:55 96 High Flow Nasal Cannula 20.00 40 06/25/16 20:00 97.9 70 24 151/91 96 06/25/16 20:00 64 06/25/16 20:00 94 Nasal Cannula 40 Humidified 06/25/16 18:52 95 40 06/25/16 18:00 75 06/25/16 16:00 116 06/25/16 16:00 92 45 06/25/16 16:00 98.5 116 24 169/111 92 06/25/16 14:00 64 06/25/16 12:00 71 06/25/16 12:00 96 50 06/25/16 12:00 98.2 71 18 160/72 96 06/25/16 10:00 72 Labs: Laboratory Tests Test 06/26/16 09:00 White Blood Count 10.9 TH/MM3 (4.0-11.0) Red Blood Count 3.40 MIL/MM3 (4.00-5.30) Hemoglobin 11.4 GM/DL (11.6-15.3) Hematocrit 34.9 % (35.0-46.0) Mean Corpuscular Volume 102.6 FL (80.0-100.0) Mean Corpuscular Hemoglobin 33.5 PG (27.0-34.0) Mean Corpuscular Hemoglobin 32.7 % Concent (32.0-36.0) Red Cell Distribution Width 14.5 % (11.6-17.2) Platelet Count 376 TH/MM3 (150-450) Mean Platelet Volume 7.8 FL (7.0-11.0) Neutrophils (%) (Auto) 89.5 % (16.0-70.0) Lymphocytes (%) (Auto) 5.4 % (9.0-44.0) Monocytes (%) (Auto) 5.0 % (0.0-8.0) Eosinophils (%) (Auto) 0.0 % (0.0-4.0) Basophils (%) (Auto) 0.1 % (0.0-2.0) Neutrophils # (Auto) 9.7 TH/MM3 (1.8-7.7) Lymphocytes # (Auto) 0.6 TH/MM3 (1.0-4.8) Monocytes # (Auto) 0.5 TH/MM3 (0-0.9) Eosinophils # (Auto) 0.0 TH/MM3 (0-0.4) Basophils # (Auto) 0.0 TH/MM3 (0-0.2) CBC Comment AUTO DIFF Differential Total Cells 100 Counted Neutrophils % (Manual) 74 % (16-70) Band Neutrophils % 13 % (0-6) Lymphocytes % 5 % (9-44) Monocytes % 2 % (0-8) Neutrophils # (Manual) 10.1 TH/MM3 (1.8-7.7) Metamyelocytes 3 % (0-1) Myelocytes 3 % (0-0) Differential Comment FINAL DIFF MANUAL Platelet Estimate NORMAL (NORMAL) Platelet Morphology Comment NORMAL (NORMAL) Red Cell Morphology Comment NORMAL (NORMAL) Sodium Level 139 MEQ/L (136-145) Potassium Level 3.9 MEQ/L (3.5-5.1) Chloride Level 100 MEQ/L (98-107) Carbon Dioxide Level 29.7 MEQ/L (21.0-32.0) Anion Gap 9 MEQ/L (5-15) Blood Urea Nitrogen 8 MG/DL (7-18) Creatinine 0.62 MG/DL (0.50-1.00) Estimat Glomerular Filtration 131 ML/MIN Rate (>89) Random Glucose 163 MG/DL (74-106) Calcium Level 9.1 MG/DL (8.5-10.1) Phosphorus Level 3.2 MG/DL (2.5-4.9) Magnesium Level 1.7 MG/DL (1.5-2.5) Total Bilirubin 0.2 MG/DL (0.2-1.0) Aspartate Amino Transf 19 U/L (15-37) (AST/SGOT) Alanine Aminotransferase 19 U/L (10-53) (ALT/SGPT) Alkaline Phosphatase 87 U/L (45-117) Total Protein 6.6 GM/DL (6.4-8.2) Albumin 2.6 GM/DL (3.4-5.0) Result Diagram: 06/26/16 0900 06/26/16 0900 Imaging: Last 24 hours Impressions Chest X-Ray 06/26/16 0600 Signed Impressions: Service Date/Time: Sunday, June 26, 2016 02:57 - CONCLUSION: Very tiny right apical pneumothorax. No significant change compared to the prior study. Yaron Hurst MD Chest X-Ray 06/25/16 1200 Signed Impressions: Service Date/Time: June 11:32 - CONCLUSION: 1. Decrease in size of right pneumothorax with 2 small right chest tubes present. No new infiltrate. Rafael Matias MD Cardiovascular: RRR Plan: Continue chest tubes to suction. Wean oxygen as tolerated. She likely has a metabolic alkalosis compensating for CO2 retention and a respiratory acidosis from this interstitial pneumonitis. Bety Curtis MD June 26, 2016 10:03
--- NOTE | 2016-06-26 10:20 | HHI.PR ---
Subjective Subjective Notes Resting in bed No complaints Objective Vitals/I&O Vital Signs Date Time Temp Pulse Resp B/P Pulse Ox O2 Delivery O2 Flow Rate FiO2 06/26/16 10:00 50 06/26/16 08:04 97 High Flow Nasal Cannula 20.00 40 06/26/16 08:00 97.9 21 161/84 Labs Laboratory Tests Test 06/26/16 09:00 White Blood Count 10.9 Red Blood Count 3.40 Hemoglobin 11.4 Hematocrit 34.9 Mean Corpuscular Volume 102.6 Mean Corpuscular Hemoglobin 33.5 Mean Corpuscular Hemoglobin 32.7 Concent Red Cell Distribution Width 14.5 Platelet Count 376 Mean Platelet Volume 7.8 Neutrophils (%) (Auto) 89.5 Lymphocytes (%) (Auto) 5.4 Monocytes (%) (Auto) 5.0 Eosinophils (%) (Auto) 0.0 Basophils (%) (Auto) 0.1 Neutrophils # (Auto) 9.7 Lymphocytes # (Auto) 0.6 Monocytes # (Auto) 0.5 Eosinophils # (Auto) 0.0 Basophils # (Auto) 0.0 CBC Comment AUTO DIFF Differential Total Cells 100 Counted Neutrophils % (Manual) 74 Band Neutrophils % 13 Lymphocytes % 5 Monocytes % 2 Neutrophils # (Manual) 10.1 Metamyelocytes 3 Myelocytes 3 Differential Comment FINAL DIFF MANUAL Platelet Estimate NORMAL Platelet Morphology Comment NORMAL Red Cell Morphology Comment NORMAL Sodium Level 139 Potassium Level 3.9 Chloride Level 100 Carbon Dioxide Level 29.7 Anion Gap 9 Blood Urea Nitrogen 8 Creatinine 0.62 Estimat Glomerular Filtration 131 Rate Random Glucose 163 Calcium Level 9.1 Phosphorus Level 3.2 Magnesium Level 1.7 Total Bilirubin 0.2 Aspartate Amino Transf 19 (AST/SGOT) Alanine Aminotransferase 19 (ALT/SGPT) Alkaline Phosphatase 87 Total Protein 6.6 Albumin 2.6 Date/Time Procedure Status Source Growth 06/23/16 05:09 Aerobic Blood Culture - Preliminary Resulted Blood Peripheral NO GROWTH IN 2 DAYS 06/23/16 05:09 Anaerobic Blood Culture - Preliminary Resulted Blood Peripheral NO GROWTH IN 2 DAYS 06/23/16 00:20 Urine Culture - Final Complete Urine Random Urine NO GROWTH IN 48 HOURS. 06/22/16 01:38 Legionella Antigen - Final Complete Urine Catheterized Urine PRESUMPTIVE NEGATIVE FOR LEGIONELLA P... 06/22/16 01:38 Streptococcus pneumoniae Antigen (M - Final Complete Urine Catheterized Urine PRESUMPTIVE NEGATIVE FOR STREPTOCOCCU... Cardiovascular: Regular Lungs: Clear Abdomen: Non-distended, Non-tender Extremities: No edema Narrative Exam RIGHT sided chest tube x 2 to wall suction A/P Assessment and Plan 35 year old female with large RIGHT sided PTX -Chest tube x 2 to wall suction -CXR today shows small RIGHT apical PTX -CTS following -Regular diet -Pain control -CCM following Attending Statement patient seen at bedside ptx improved appreciate cts recs recheck cxr Attestation The exam, history, and the medical decision-making described in the above note were completed with the assistance of the mid-level provider. I reviewed and agree with the findings presented. I attest that I had a [id number] encounter with the patient on the same day, and personally performed and documented my assessment and findings in the medical record. Em Olivera June 26, 2016 10:20 Yury Mckinley MD July 06, 2016 22:13
[2016-06-26] MEDS: SODIUM CHLORIDE 0.9% FLUSH 10 ML FLUSH SCH ×2 (11:20→21:06)
--- NOTE | 2016-06-26 17:00 | RADRPT ---
EXAM DATE/TIME: 06/26/2016 16:29 [facility] COMPARISON: CHEST SINGLE AP, June 21, 2016, 18:50. CHEST PA & LAT, June 03, 2014, 3:24. CHEST SINGLE AP, June, 20:04. CT THORAX W CONTRAST, June 21, 2016, 22:53. CHEST SINGLE AP, June 26, 2016, 2:57. INDICATIONS : Right chest tube extubation MEDICAL HISTORY : Hypertension. Asthma. SURGICAL HISTORY : None. ENCOUNTER: Subsequent ACUITY: 4 - 6 days PAIN SCORE: Non-responsive. LOCATION: Right chest FINDINGS: Small bore chest tube is in place on the right with a 7 mm right pneumothorax. Minimal parenchymal c hanges are present on the left. Heart and pulmonary vascularity are normal. CONCLUSION: Pneumothorax on the right in spite of chest tube. Michael Riddle MD FACR on June 26, 2016 at 16:53 Board Certified Radiologist. This report was verified electronically.
[2016-06-26] MEDS: ENOXAPARIN SODIUM 30 MG/0.3 ML SYRINGE SQ SCH (21:05)
--- NOTE | 2016-06-26 22:31 | RADRPT ---
EXAM DATE/TIME: 06/26/2016 21:50 [facility] COMPARISON: CHEST SINGLE AP, June 26, 2016, 16:29. INDICATIONS : Evaluate right pneumothorax MEDICAL HISTORY : Hypertension. Asthma. SURGICAL HISTORY : None. ENCOUNTER: Subsequent ACUITY: 4 - 6 months PAIN SCORE: 0/10 LOCATION: Right chest FINDINGS: Small right apical pneumothorax persists with about 5 mm separation of apical pleural layers. Right c hest pigtail thoracostomy tube remains in place. Hazy bilateral parenchymal opacities are unchanged. Cardiac contours are stable. CONCLUSION: No significant change William Walden MD on June 26, 2016 at 22:28 Board Certified Radiologist. This report was verified electronically.
[2016-06-27] VITALS (18 sets, daily range): BP systolic 134–195; BP diastolic 60–106; PULSE 50–103; RESP 17–26; TEMP 98–98.7; O2SAT 94–99
[2016-06-27] MEDS: RESP: ALBUTEROL 2.5 MG/IPRATROPIUM 0.5 MG NEB (SCH) INH ×7 (00:28→23:53)
[2016-06-27] MEDS: AZITHROMYCIN INJ 500 MG in SODIUM CHLOR 0.9% 250 ML INJ 250 ML IV SCH (01:05)
[2016-06-27] MEDS: oxyCODONE/ACETAMINOPHEN 10 MG/325 MG TAB PO PRN ×6 (01:06→23:47)
[2016-06-27] MEDS: CHLORHEXIDINE GLUCONATE 2 % 1 PACK (2 CLOTHS) TOP SCH (03:04)
[2016-06-27] MEDS: PIPERACIL-TAZO 4.5 GM PREMIX 100 ML IV SCH ×4 (04:57→23:47)
[2016-06-27] MEDS: methylPREDNISolone SOD SUCC 40 MG/1 ML VIAL IV PUSH SCH ×3 (04:58→21:40)
--- NOTE | 2016-06-27 05:02 | RADRPT ---
EXAM DATE/TIME: 06/27/2016 03:56 [facility] COMPARISON: CHEST SINGLE AP, June 26, 2016, 21:50. INDICATIONS : Shortness of breath, possible pulmonary disease. MEDICAL HISTORY : Hypertension. Asthma SURGICAL HISTORY : None. ENCOUNTER: Subsequent ACUITY: 1 week PAIN SCORE: 0/10 LOCATION: Bilateral chest FINDINGS: Stable 5 mm right apical pneumothorax. Chest tube remains in place. Heart size is stable. No definite pleural effusions. No significant changes compared to the prior study. CONCLUSION: Stable 5 mm right apical pneumothorax. Yaron Hurst MD on June 27, 2016 at 5:00 Board Certified Radiologist. This report was verified electronically.
[2016-06-27 06:51] LABS: AUTOMATED NEUTROPHIL # 10.4 TH/MM3 (1.8-7.7); BASOPHIL % 0.1 % (0.0-2.0); EOSINOPHIL % 0.1 % (0.0-4.0); HEMATOCRIT 34.9 % (35.0-46.0); LYMPH % 9.2 % (9.0-44.0); LYMPHOCYTE # 1.2 TH/MM3 (1.0-4.8); MEAN CELL VOLUME 102.2 FL (80.0-100.0); MEAN CORPUSCULAR HEMOGLOBIN 33.6 PG (27.0-34.0); MEAN CORPUSCULAR HGB CONC 32.8 % (32.0-36.0); MONO % 8.2 % (0.0-8.0); NEUT % 82.4 % (16.0-70.0); PLATELET COUNT 396 TH/MM3 (150-450); RED BLOOD COUNT 3.42 MIL/MM3 (4.00-5.30); RED CELL DISTRIBUTION WIDTH 14.6 % (11.6-17.2); WHITE BLOOD COUNT 12.6 TH/MM3 (4.0-11.0)
[2016-06-27 07:03] LABS: HEMO FLAGS AUTO DIFF
[2016-06-27 07:27] LABS: ALKALINE PHOSPHATASE 83 U/L (45-117); ALT (GPT) 20 U/L (10-53); ANION GAP 9 MEQ/L (5-15); AST (GOT) 17 U/L (15-37); BICARBONATE 29.7 MEQ/L (21.0-32.0); BLOOD UREA NITROGEN 7 MG/DL (7-18); CHLORIDE 101 MEQ/L (98-107); GLOMERULAR FILTRATION RATE 168 ML/MIN (>89); MAGNESIUM 1.7 MG/DL (1.5-2.5); POTASSIUM 3.4 MEQ/L (3.5-5.1); SODIUM (NA) 140 MEQ/L (136-145); TOTAL BILIRUBIN ADULT 0.2 MG/DL (0.2-1.0)
[2016-06-27 08:34] LABS: BANDS 3 % (0-6); MYELOCYTES 7 % (0-0); NEUTROPHIL # MANUAL DIFF 10.5 TH/MM3 (1.8-7.7); PLATELET ESTIMATE SMEAR NORMAL (NORMAL); POLYS (SEG NEUTROPHILS) 72 % (16-70); PROMYELOCYTES 1 % (0-0); WBC DIFF SAMPLE 100
[2016-06-27 08:35] LABS: PLATELET MORPHOLOGY ENLARGED (NORMAL); SCAN/DIFF FINAL DIFF MANUAL
[2016-06-27] MEDS: SODIUM CHLORIDE 0.9% FLUSH 10 ML FLUSH SCH ×2 (10:57→20:53)
--- NOTE | 2016-06-27 13:27 | PD.CAR.PN ---
CVT Progress Note Subjective/Hospital Course: Right apical PTX improved. Continues on high flow O2 06/27/16 Improving with decreased FiO2. One pigtail fell out. The other remains in place with no air leak. Objective: Vital Signs Date Time Temp Pulse Resp B/P Pulse Ox O2 Delivery O2 Flow Rate FiO2 06/27/16 10:00 54 06/27/16 09:01 99 Nasal Cannula 3.00 06/27/16 08:00 98.7 50 21 173/83 94 06/27/16 08:00 94 Nasal Cannula 4.00 Humidified 06/27/16 08:00 50 06/27/16 04:00 98.6 55 26 172/81 97 06/27/16 04:00 Nasal Cannula 4.00 Humidified 06/27/16 02:08 18 06/27/16 02:00 103 06/27/16 00:00 Nasal Cannula 4.00 40 Humidified 06/27/16 00:00 98.2 55 22 134/60 98 06/26/16 20:25 98 Nasal Cannula 3.00 06/26/16 20:00 Nasal Cannula 4.00 40 Humidified 06/26/16 20:00 97.8 60 29 155/70 96 06/26/16 18:00 58 06/26/16 16:00 98.5 62 24 170/92 97 06/26/16 16:00 Nasal Cannula 4.00 Humidified 06/26/16 16:00 62 06/26/16 14:00 52 06/26/16 13:55 14 Labs: Laboratory Tests Test 06/27/16 05:50 White Blood Count 12.6 TH/MM3 (4.0-11.0) Red Blood Count 3.42 MIL/MM3 (4.00-5.30) Hemoglobin 11.5 GM/DL (11.6-15.3) Hematocrit 34.9 % (35.0-46.0) Mean Corpuscular Volume 102.2 FL (80.0-100.0) Mean Corpuscular Hemoglobin 33.6 PG (27.0-34.0) Mean Corpuscular Hemoglobin 32.8 % Concent (32.0-36.0) Red Cell Distribution Width 14.6 % (11.6-17.2) Platelet Count 396 TH/MM3 (150-450) Mean Platelet Volume 8.2 FL (7.0-11.0) Neutrophils (%) (Auto) 82.4 % (16.0-70.0) Lymphocytes (%) (Auto) 9.2 % (9.0-44.0) Monocytes (%) (Auto) 8.2 % (0.0-8.0) Eosinophils (%) (Auto) 0.1 % (0.0-4.0) Basophils (%) (Auto) 0.1 % (0.0-2.0) Neutrophils # (Auto) 10.4 TH/MM3 (1.8-7.7) Lymphocytes # (Auto) 1.2 TH/MM3 (1.0-4.8) Monocytes # (Auto) 1.0 TH/MM3 (0-0.9) Eosinophils # (Auto) 0.0 TH/MM3 (0-0.4) Basophils # (Auto) 0.0 TH/MM3 (0-0.2) CBC Comment AUTO DIFF Differential Total Cells 100 Counted Neutrophils % (Manual) 72 % (16-70) Band Neutrophils % 3 % (0-6) Lymphocytes % 8 % (9-44) Monocytes % 9 % (0-8) Neutrophils # (Manual) 10.5 TH/MM3 (1.8-7.7) Myelocytes 7 % (0-0) Promyelocytes 1 % (0-0) Differential Comment FINAL DIFF MANUAL Platelet Estimate NORMAL (NORMAL) Platelet Morphology Comment ENLARGED (NORMAL) Sodium Level 140 MEQ/L (136-145) Potassium Level 3.4 MEQ/L (3.5-5.1) Chloride Level 101 MEQ/L (98-107) Carbon Dioxide Level 29.7 MEQ/L (21.0-32.0) Anion Gap 9 MEQ/L (5-15) Blood Urea Nitrogen 7 MG/DL (7-18) Creatinine 0.50 MG/DL (0.50-1.00) Estimat Glomerular Filtration 168 ML/MIN Rate (>89) Random Glucose 137 MG/DL (74-106) Calcium Level 9.1 MG/DL (8.5-10.1) Phosphorus Level 4.5 MG/DL (2.5-4.9) Magnesium Level 1.7 MG/DL (1.5-2.5) Total Bilirubin 0.2 MG/DL (0.2-1.0) Aspartate Amino Transf 17 U/L (15-37) (AST/SGOT) Alanine Aminotransferase 20 U/L (10-53) (ALT/SGPT) Alkaline Phosphatase 83 U/L (45-117) Total Protein 6.5 GM/DL (6.4-8.2) Albumin 2.6 GM/DL (3.4-5.0) Result Diagram: 06/27/16 0550 06/27/16 0550 Imaging: Last 24 hours Impressions Chest X-Ray 06/27/16 0000 Signed Impressions: Service Date/Time: Monday, June 27, 2016 03:56 - CONCLUSION: Stable 5 mm right apical pneumothorax. Yaron Hurst MD Chest X-Ray 06/26/16 2200 Signed Impressions: Service Date/Time: Sunday, June 26, 2016 21:50 - CONCLUSION: No significant change William Walden MD Cardiovascular: RRR Pulmonary: CTA GI/: NABS, NT Plan: Pigtail catheter to water seal CXR in AM - if stable, will d/c last pigtail. Bety Curtis MD June 27, 2016 13:27
--- NOTE | 2016-06-27 15:00 | HHI.CCPN ---
Subjective Remarks/Hospital Course 35-year-old female with history of asthma presenting to emergency department for evaluation of shortness of breath. EMS states that patient's oxygen saturation was in the low 70s initially, after 2 DuoNeb and O2 administration her sats were assessed at 92%. Her chart the patient was tachycardic with a rate of 115. After nebulizer treatments patient's heart rate was 130. Patient reports coughing up clear mucus, reports nausea but no vomiting. The chest x- ray revealed large right-sided pneumothorax with attention. The chest tube was placed by ED attending with a good lung reexpansion however complicated with reexpansion pulmonary edema. Patient is placed on facemask BiPAP with improving oxygenation. 06/22 2 chest tubes were placed yesterday and today in the morning for unresolving pneumothorax with improvement of x-ray however there is significant worsening of pulmonary infiltrates bilaterally and respiratory distress. Critical care medicine was reconsulted due to hypoxemia and respiratory failure 06/23 The patient has been transitioned onto facemask, no dyspnea noted. Chest tube remain to wall suction. Now off BiPAP patient will resume a regular diet. 06/24: The patient has been placed on high flow oxygen nasal cannula. Chest tube has been placed on waterseal, the patient continues to be well oxygenated with FiO2 55%. 06/25: Afebrile. Chest tube placed back to wall suction secondary to apical pneumothorax. Will continue to wall suction. The patient has been weaned to FiO2 of 45%, with O2 sats duration of 94-95%. Pain from chest tube site well controlled. Patient complained of coughing, Tessalon Pearls provided with resolution of symptoms. 06/26 No acute events overnight. Remains on high flow oxygen. Afebrile.Chest tube to wall suction. 06/27: The patient was weaned to nasal cannula at 4 L/m. Overnight 1 chest tube inadvertently removed by patient. Right apical chest tube in situ. Chest tube placed to waterseal this a.m.. The patient was noted to have an elevated blood pressure, upon reviewing her history, the patient previously was on clonidine twice a day, and stopped taking medication due to insurance coverage. Pharmacy dose confirmed with outside pharmacy, patient started on clonidine 0.2 mg twice a day. Objective Vital Signs Date Time Temp Pulse Resp B/P Pulse Ox O2 Delivery O2 Flow Rate FiO2 06/27/16 10:00 54 5/13/17 09:01 99 Nasal Cannula 3.00 06/27/16 08:00 98.7 21 173/83 06/27/16 00:00 40 Intake and Output 06/26/16 06/26/16 06/27/16 08:00 16:00 00:00 Intake Total 1396 ml 997 ml 577 ml Output Total 0 ml 0 ml 620 ml Balance 1396 ml 997 ml -43 ml Result Diagram: 06/27/16 0550 06/27/16 0550 Imaging Last Impressions Chest X-Ray 06/26/16 0600 Signed Impressions: Service Date/Time: Sunday, June 26, 2016 02:57 - CONCLUSION: Very tiny right apical pneumothorax. No significant change compared to the prior study. Yaron Hurst MD Chest CT 06/21/16 0000 Signed Impressions: Service Date/Time: Tuesday, June 21, 2016 22:53 - CONCLUSION: 1. Large right-sided pneumothorax despite small caliber chest tube. The chest tube is coiled within the major fissure. Consider either a second chest tube more anteriorly or consider having interventional radiology redirect existing tube more anteriorly. 2. Bilateral pulmonary consolidation. Pulmonary edema versus infectious infiltrate. Obie Ho Jr., MD Objective Remarks GENERAL: Well-nourished, well-developed patient. On high flow nasal cannula at .45% in no acute distress, no dyspnea noted SKIN: Warm and dry. HEAD: Normocephalic. EYES: No scleral icterus. No injection or drainage. NECK: Supple, trachea midline. No JVD or lymphadenopathy. CARDIOVASCULAR: Regular rate and rhythm without murmurs, gallops, or rubs. RESPIRATORY: Breath sounds equal bilaterally. No accessory muscle use. Right chest tube to waterseal GASTROINTESTINAL: Abdomen soft, non-tender, nondistended. MUSCULOSKELETAL: No cyanosis, or edema. BACK: Nontender without obvious deformity. No CVA tenderness. EXTREMITIES: No clubbing cyanosis or edema Date of Removal: June 24, 2016 A/P Assessment and Plan 1)Resp Insuff 2) Pneumothorax-Tiny apical PTX on CXR this morning 3) Reexpansion pulmonary edema 4)Hx Asthma 5)Anemia 6) Hypertension Neuro: Awake, alert Pulm: Continue to wean down oxygen as ben keep sat >92% Bronchodilators, Solumderol 40mg IV Q8 - 06/22 Chest tube placed by ED attending - 06/22 2nd chest tube placed by Dr. Mckinley general surgery/trauma - Continue low wall suction [id number], -CTS surgery is following- if no improvements consider VATS for apical pleurodesis and lung biopsy. CV: Monitor HR and BP keep MAP>65mmHg :Monitor renal function, I/O's, electrolytes replacement per protocol. GI: On PO diet ID: Continue abx ( Zosyn, Zithromax) Monitor for signs of infections ( fever, WBC). Check sputum cx, WBC trending down. Strep pneumonia and Legionella urinary Ag negative on 06/22 Heme: Monitor CBC Endo: SSI if needed for glycemic control No need for GI prophylaxis- on PO diet DVT prophylaxis- On Lovenox SQ Dispo: Discussed with BORING MACHINE OPERATOR DOUBLE END and patient at bedside Level 3 Physician Kerri Amaro MD June 27, 2016 14:59
[2016-06-27] MEDS: cloNIDine HCL 0.2 MG TAB PO SCH ×2 (16:59→20:52)
[2016-06-27] MEDS: MORPHINE SULFATE 4 MG/ML INJ IV PUSH PRN (20:52)
[2016-06-27] MEDS: ENOXAPARIN SODIUM 30 MG/0.3 ML SYRINGE SQ SCH (21:40)
[2016-06-28] VITALS (19 sets, daily range): BP systolic 109–175; BP diastolic 56–84; PULSE 51–75; RESP 12–27; TEMP 97.6–98.8; O2SAT 96–100
[2016-06-28] MEDS: MORPHINE SULFATE 4 MG/ML INJ IV PUSH PRN ×3 (00:37→11:27)
[2016-06-28] MEDS: hydrALAZINE HCL 20 MG/ML VIAL IV PUSH PRN (00:37)
[2016-06-28] MEDS: AZITHROMYCIN INJ 500 MG in SODIUM CHLOR 0.9% 250 ML INJ 250 ML IV SCH ×2 (00:38→23:34)
[2016-06-28] MEDS: RESP: ALBUTEROL 2.5 MG/IPRATROPIUM 0.5 MG NEB (SCH) INH ×6 (04:00→23:41)
[2016-06-28] MEDS: CHLORHEXIDINE GLUCONATE 2 % 1 PACK (2 CLOTHS) TOP SCH (04:00)
[2016-06-28] MEDS: oxyCODONE/ACETAMINOPHEN 10 MG/325 MG TAB PO PRN ×5 (04:15→23:34)
--- NOTE | 2016-06-28 04:45 | RADRPT ---
EXAM DATE/TIME: 06/28/2016 03:53 [facility] COMPARISON: CHEST SINGLE AP, June 27, 2016, 3:56. INDICATIONS : Shortness of breath, possible pulmonary disease. MEDICAL HISTORY : Hypertension. Asthma SURGICAL HISTORY : None. ENCOUNTER: Subsequent ACUITY: 1 week PAIN SCORE: 0/10 LOCATION: Right chest FINDINGS: The right chest tube remains in place. The previously tiny 5 mm apical right pneumothorax appears to be resolved. The right lung is grossly clear. There is atelectasis in the left lung base. There is calvert bcutaneous emphysema along the right chest wall. The heart size is stable. There are no pleural effus ions. CONCLUSION: 1. No evidence of pneumothorax. 2. Left lower lung atelectasis. Yaron Hurst MD on June 28, 2016 at 4:42 Board Certified Radiologist. This report was verified electronically.
[2016-06-28] MEDS: methylPREDNISolone SOD SUCC 40 MG/1 ML VIAL IV PUSH SCH ×3 (05:27→19:30)
[2016-06-28] MEDS: PIPERACIL-TAZO 4.5 GM PREMIX 100 ML IV SCH ×4 (05:28→23:34)
[2016-06-28] MEDS: SODIUM CHLORIDE 0.9% FLUSH 10 ML FLUSH SCH ×2 (08:56→19:31)
[2016-06-28] MEDS: cloNIDine HCL 0.2 MG TAB PO SCH ×2 (08:56→19:30)
--- NOTE | 2016-06-28 10:06 | HHI.CCPN ---
Subjective Remarks/Hospital Course 35-year-old female with history of asthma presenting to emergency department for evaluation of shortness of breath. EMS states that patient's oxygen saturation was in the low 70s initially, after 2 DuoNeb and O2 administration her sats were assessed at 92%. Her chart the patient was tachycardic with a rate of 115. After nebulizer treatments patient's heart rate was 130. Patient reports coughing up clear mucus, reports nausea but no vomiting. The chest x- ray revealed large right-sided pneumothorax with attention. The chest tube was placed by ED attending with a good lung reexpansion however complicated with reexpansion pulmonary edema. Patient is placed on facemask BiPAP with improving oxygenation. 06/22 2 chest tubes were placed yesterday and today in the morning for unresolving pneumothorax with improvement of x-ray however there is significant worsening of pulmonary infiltrates bilaterally and respiratory distress. Critical care medicine was reconsulted due to hypoxemia and respiratory failure 06/23 The patient has been transitioned onto facemask, no dyspnea noted. Chest tube remain to wall suction. Now off BiPAP patient will resume a regular diet. 06/24: The patient has been placed on high flow oxygen nasal cannula. Chest tube has been placed on waterseal, the patient continues to be well oxygenated with FiO2 55%. 06/25: Afebrile. Chest tube placed back to wall suction secondary to apical pneumothorax. Will continue to wall suction. The patient has been weaned to FiO2 of 45%, with O2 sats duration of 94-95%. Pain from chest tube site well controlled. Patient complained of coughing, Tessalon Pearls provided with resolution of symptoms. 06/26 No acute events overnight. Remains on high flow oxygen. Afebrile.Chest tube to wall suction. 06/27: The patient was weaned to nasal cannula at 4 L/m. Overnight 1 chest tube inadvertently removed by patient. Right apical chest tube in situ. Chest tube placed to waterseal this a.m.. The patient was noted to have an elevated blood pressure, upon reviewing her history, the patient previously was on clonidine twice a day, and stopped taking medication due to insurance coverage. Pharmacy dose confirmed with outside pharmacy, patient started on clonidine 0.2 mg twice a day. 06/28: Chest tube remained on water seal overnight. Repeat chest x-ray this a.m. right apical pneumothorax resolved. Plan for removal of pigtail chest tube today. Patient has a history of hypertension. Patient was started on clonidine 0.2 mg twice a day. Blood pressure now well controlled. Objective Vital Signs Date Time Temp Pulse Resp B/P Pulse Ox O2 Delivery O2 Flow Rate FiO2 06/28/16 09:01 99 Nasal Cannula 2.00 06/28/16 06:00 54 23 140/71 06/28/16 04:00 97.6 06/27/16 00:00 40 Intake and Output 06/27/16 06/27/16 06/28/16 08:00 16:00 00:00 Intake Total 409 ml 1083 ml 529 ml Output Total 1000 ml 0 ml 500 ml Balance -591 ml 1083 ml 29 ml Result Diagram: 06/27/16 0550 06/27/16 0550 Imaging Last Impressions Chest X-Ray 06/26/16 0600 Signed Impressions: Service Date/Time: Sunday, June 26, 2016 02:57 - CONCLUSION: Very tiny right apical pneumothorax. No significant change compared to the prior study. Yaron Hurst MD Chest CT 06/21/16 0000 Signed Impressions: Service Date/Time: Tuesday, June 21, 2016 22:53 - CONCLUSION: 1. Large right-sided pneumothorax despite small caliber chest tube. The chest tube is coiled within the major fissure. Consider either a second chest tube more anteriorly or consider having interventional radiology redirect existing tube more anteriorly. 2. Bilateral pulmonary consolidation. Pulmonary edema versus infectious infiltrate. Obie Ho Jr., MD Objective Remarks GENERAL: Well-nourished, well-developed patient. On high flow nasal cannula at .45% in no acute distress, no dyspnea noted SKIN: Warm and dry. HEAD: Normocephalic. EYES: No scleral icterus. No injection or drainage. NECK: Supple, trachea midline. No JVD or lymphadenopathy. CARDIOVASCULAR: Regular rate and rhythm without murmurs, gallops, or rubs. RESPIRATORY: Breath sounds equal bilaterally. No accessory muscle use. Right chest tube to waterseal GASTROINTESTINAL: Abdomen soft, non-tender, nondistended. MUSCULOSKELETAL: No cyanosis, or edema. BACK: Nontender without obvious deformity. No CVA tenderness. EXTREMITIES: No clubbing cyanosis or edema Date of Removal: June 24, 2016 A/P Assessment and Plan 1)Resp Insuff 2) Pneumothorax-resolved 3) Reexpansion pulmonary edema-resolved 4)Hx Asthma 5)Anemia 6) Hypertension Neuro: Awake, alert Pulm: Continue to wean down oxygen as ben keep sat >92% Bronchodilators, Solumderol 40mg IV Q8 - 06/22 Chest tube placed by ED attending - 06/22 2nd chest tube placed by Dr. Mckinley general surgery/trauma - 06/28- removal of chest tube today -CTS surgery is following- if no improvements consider VATS for apical pleurodesis and lung biopsy. CV: Monitor HR and BP keep MAP>65mmHg. clonidine 0.2mg BID :Monitor renal function, I/O's, electrolytes replacement per protocol. GI: On PO diet ID: Continue abx ( Zosyn, Zithromax) Monitor for signs of infections ( fever, WBC). Check sputum cx, WBC trending down. Strep pneumonia and Legionella urinary Ag negative on 06/22 Heme: Monitor CBC Endo: SSI if needed for glycemic control No need for GI prophylaxis- on PO diet DVT prophylaxis- On Lovenox SQ Dispo: Discussed with PNEUMATIC TOOL OPERATOR and patient at bedside plan transfer to [facility] in the a.m. Level 2 Physician Kerri Amaro MD June 28, 2016 10:05
--- NOTE | 2016-06-28 11:00 | PD.CAR.PN ---
CVT Progress Note Subjective/Hospital Course: Right apical PTX improved. Continues on high flow O2 06/27/16 Improving with decreased FiO2. One pigtail fell out. The other remains in place with no air leak. 06/28/16 Doing well, no air leak Objective: Vital Signs Date Time Temp Pulse Resp B/P Pulse Ox O2 Delivery O2 Flow Rate FiO2 06/28/16 09:01 99 Nasal Cannula 2.00 06/28/16 06:00 54 23 140/71 98 06/28/16 06:00 54 06/28/16 05:15 18 06/28/16 05:00 53 12 131/67 97 06/28/16 04:04 61 20 134/78 97 06/28/16 04:00 51 06/28/16 04:00 97.6 51 16 134/76 97 06/28/16 04:00 97 Nasal Cannula 2.00 06/28/16 04:00 51 14 97 06/28/16 03:14 16 06/28/16 03:01 57 14 140/64 97 06/28/16 03:00 58 15 97 06/28/16 02:00 59 14 109/59 97 06/28/16 02:00 59 06/28/16 01:00 75 22 116/56 96 06/28/16 00:00 57 27 175/84 97 06/28/16 00:00 97 Nasal Cannula 2.00 06/28/16 00:00 57 06/28/16 00:00 98.8 57 18 175/84 97 06/27/16 23:02 57 19 186/100 98 06/27/16 23:00 58 17 195/106 98 06/27/16 22:01 56 21 160/74 97 06/27/16 22:00 55 06/27/16 22:00 55 20 97 06/27/16 21:01 71 19 160/99 97 06/27/16 21:00 80 22 160/106 98 06/27/16 20:13 97 Nasal Cannula 2.00 06/27/16 20:00 97 Nasal Cannula 2.00 06/27/16 20:00 57 06/27/16 20:00 98.3 57 18 153/74 97 06/27/16 20:00 57 18 153/74 97 06/27/16 18:00 60 06/27/16 16:00 98.0 61 20 161/84 97 06/27/16 16:00 97 Nasal Cannula 2.00 Humidified 06/27/16 16:00 61 06/27/16 14:00 58 06/27/16 12:00 98 Nasal Cannula 2.00 Humidified 06/27/16 12:00 56 06/27/16 12:00 98.2 56 18 153/81 98 Result Diagram: 06/27/16 0550 06/27/16 0550 Imaging: Last 24 hours Impressions Chest X-Ray 06/28/16 0600 Signed Impressions: Service Date/Time: Tuesday, June 28, 2016 03:53 - CONCLUSION: 1. No evidence of pneumothorax. 2. Left lower lung atelectasis. Yaron Hurst MD Cardiovascular: RRR Telemetry: NSR Pulmonary: CTA GI/: NABS, NT Plan: D/C pigtail Will sign off Discharge planning per primary service. Bety Curtis MD June 28, 2016 10:59
[2016-06-28] MEDS: ENOXAPARIN SODIUM 30 MG/0.3 ML SYRINGE SQ SCH (19:31)
[2016-06-29] VITALS (21 sets, daily range): BP systolic 123–161; BP diastolic 63–88; PULSE 52–99; RESP 10–45; TEMP 98–98.6; O2SAT 96–100
[2016-06-29] MEDS: oxyCODONE/ACETAMINOPHEN 10 MG/325 MG TAB PO PRN ×5 (03:10→22:08)
[2016-06-29] MEDS: hydrALAZINE HCL 20 MG/ML VIAL IV PUSH PRN (03:10)
[2016-06-29] MEDS: PIPERACIL-TAZO 4.5 GM PREMIX 100 ML IV SCH ×3 (03:10→17:46)
[2016-06-29] MEDS: methylPREDNISolone SOD SUCC 40 MG/1 ML VIAL IV PUSH SCH (03:10)
[2016-06-29] MEDS: RESP: ALBUTEROL 2.5 MG/IPRATROPIUM 0.5 MG NEB (SCH) INH ×2 (03:54→07:21)
[2016-06-29] MEDS: cloNIDine HCL 0.2 MG TAB PO SCH ×2 (08:59→21:01)
[2016-06-29] MEDS: SODIUM CHLORIDE 0.9% FLUSH 10 ML FLUSH SCH ×2 (08:59→21:01)
--- NOTE | 2016-06-29 09:24 | HHI.PR ---
Subjective Remarks Pt states that she has some pain on the right side of her chest which has been going since she has been here. chest tubes have been removed. she just got some pain meds SOB is much improved, no nausea or vomiting. Tolerating a diet. discussed w RN, no concerns at this time. Objective Vitals Vital Signs Date Time Temp Pulse Resp B/P Pulse Ox O2 Delivery O2 Flow Rate FiO2 06/29/16 07:23 100 Nasal Cannula 2.00 06/29/16 06:00 56 06/29/16 04:00 60 06/29/16 04:00 98.1 57 15 138/63 98 06/29/16 04:00 96 Nasal Cannula 2.00 06/29/16 02:00 59 06/29/16 00:00 98.0 60 26 161/72 98 06/29/16 00:00 95 Nasal Cannula 2.00 06/29/16 00:00 67 06/28/16 22:00 59 06/28/16 20:14 97 Nasal Cannula 2.00 06/28/16 20:00 96 Nasal Cannula 2.00 06/28/16 20:00 97.7 55 20 159/79 96 06/28/16 20:00 60 06/28/16 18:00 58 06/28/16 16:00 98.7 60 19 117/66 100 06/28/16 16:00 95 Nasal Cannula 2.00 06/28/16 16:00 62 06/28/16 14:39 18 06/28/16 14:00 71 06/28/16 12:00 98.6 53 18 117/75 96 06/28/16 12:00 66 06/28/16 12:00 96 Nasal Cannula 2.00 06/28/16 10:00 60 I/O 06/28/16 06/28/16 06/28/16 06/29/16 06/29/16 06/29/16 07:00 15:00 23:00 07:00 15:00 23:00 Intake Total 1234 ml 336 ml 1754 ml 164 ml Output Total 2075 ml 875 ml 700 ml Balance -841 ml -539 ml 1054 ml 164 ml Intake Oral 720 ml 1065 ml IV Total 514 ml 336 ml 689 ml 164 ml Output Urine Total 2075 ml 875 ml 700 ml # Bowel Movements 0 0 0 # Sanitary Pads 0 Pads 0 Pads 0 Pads 0 Pads 0 Pads 0 Pads 0 Pads 0 Pads Result Diagram: 06/27/16 0550 06/27/16 0550 Imaging Last Impressions Chest X-Ray 06/28/16 0600 Signed Impressions: Service Date/Time: Tuesday, June 28, 2016 03:53 - CONCLUSION: 1. No evidence of pneumothorax. 2. Left lower lung atelectasis. Yaron Hurst MD Chest CT 06/21/16 0000 Signed Impressions: Service Date/Time: Tuesday, June 21, 2016 22:53 - CONCLUSION: 1. Large right-sided pneumothorax despite small caliber chest tube. The chest tube is coiled within the major fissure. Consider either a second chest tube more anteriorly or consider having interventional radiology redirect existing tube more anteriorly. 2. Bilateral pulmonary consolidation. Pulmonary edema versus infectious infiltrate. Obie Ho Jr., MD Objective Remarks GENERAL: Well-nourished, well-developed patient. On high flow nasal cannula at .45% in no acute distress, no dyspnea noted CARDIOVASCULAR: Regular rate and rhythm without murmurs RESPIRATORY: Breath sounds equal bilaterally. No accessory muscle use. no wheezing GASTROINTESTINAL: Abdomen soft, non-tender, nondistended. MUSCULOSKELETAL: moves all extremities EXTREMITIES: No edema Date of Removal: June 24, 2016 A/P Assessment and Plan 1) Resp Insuff 2) Pneumothorax-resolved 3) Reexpansion pulmonary edema-resolved 4) Hx Asthma 5) Anemia 6) Hypertension Neuro: Awake, alert Pulm: Continue to wean down oxygen as ben keep sat >92% Bronchodilators, decrease Solumderol 40mg IV Q12h - 06/22 Chest tube placed by ED attending - 06/22 2nd chest tube placed by Dr. Mckinley general surgery/trauma - 06/28- removal of chest tube -CTS surgery had been following the patient and have signed off at this time. CV: Monitor HR and BP keep MAP>65mmHg. BP's controlled on clonidine 0.2mg BID :Monitor renal function, I/O's, electrolytes replacement per protocol. GI: On PO diet ID: Continue abx ( Zosyn, Zithromax) Monitor for signs of infections ( fever, WBC). blood cx neg x 5 days, urine cx neg x 48 hrs Strep pneumonia and Legionella urinary Ag negative on 06/22 Endo: SSI if needed for glycemic control No need for GI prophylaxis- on PO diet DVT prophylaxis- On Lovenox SQ Discharge Planning transfer to the floor continue to wean steroids. Transition to PO prednisone tomorrow morning. Discussed w CM regarding d/c planning walk test. Anticipate d/c home in 1-2 days if off oxygen Elizabeth Diaz MD June 29, 2016 09:24
--- NOTE | 2016-06-29 11:14 | RADRPT ---
EXAM DATE/TIME: 06/29/2016 10:40 [facility] COMPARISON: CHEST SINGLE AP, June 28, 2016, 3:53. INDICATIONS : Post right side chest tube removal. MEDICAL HISTORY : Hypertension. Asthma. SURGICAL HISTORY : None. ENCOUNTER: Subsequent ACUITY: 1 week PAIN SCORE: 0/10 LOCATION: Right chest FINDINGS: The patient's right-sided chest tube has been removed. There is no pneumothorax. There is a small azeem unt of subcutaneous emphysema in the right chest wall. The lungs are otherwise clear. The heart is no rmal in size. CONCLUSION: No pneumothorax identified following right chest tube removal. Viet Riddle MD on June 29, 2016 at 11:11 Board Certified Radiologist. This report was verified electronically.
--- NOTE | 2016-06-29 13:46 | HHI.PR ---
Subjective Subjective Notes Resting in bed on 2 L NC Much more comfortable with chest tubes out No respiratory distress Objective Vitals/I&O Vital Signs Date Time Temp Pulse Resp B/P Pulse Ox O2 Delivery O2 Flow Rate FiO2 06/29/16 10:00 67 06/29/16 08:00 94 Nasal Cannula 2.00 06/29/16 04:00 98.1 15 138/63 06/27/16 00:00 40 Cardiovascular: Regular Lungs: Clear Abdomen: Non-distended Extremities: No edema Narrative Exam Bilateral chest tubes removed A/P Assessment and Plan 35 year old female with large RIGHT sided PTX -Bilateral chest tubes have been removed -CXR today shows no PTX -Regular diet -Pain control -GS will sign off; please call with questions Attending Statement patient seen at bedside no resp distress doing well will s/o Attestation The exam, history, and the medical decision-making described in the above note were completed with the assistance of the mid-level provider. I reviewed and agree with the findings presented. I attest that I had a [id number] encounter with the patient on the same day, and personally performed and documented my assessment and findings in the medical record. Em Olivera June 29, 2016 13:46 Yury Mckinley MD July 12, 2016 14:37
[2016-06-29] MEDS ORDERED: methylPREDNISolone SOD SUCC 40 MG/1 ML VIAL IV PUSH SCH (21:00)
[2016-06-29] MEDS: ENOXAPARIN SODIUM 30 MG/0.3 ML SYRINGE SQ SCH (22:07)
[2016-06-30] VITALS (8 sets, daily range): BP systolic 106–155; BP diastolic 70–78; PULSE 49–65; RESP 16–18; TEMP 95.7–98.4; O2SAT 96–99
[2016-06-30] MEDS: PIPERACIL-TAZO 4.5 GM PREMIX 100 ML IV SCH ×3 (00:45→12:30)
[2016-06-30] MEDS: AZITHROMYCIN INJ 500 MG in SODIUM CHLOR 0.9% 250 ML INJ 250 ML IV SCH (02:01)
[2016-06-30] MEDS: CHLORHEXIDINE GLUCONATE 2 % 1 PACK (2 CLOTHS) TOP SCH (04:00)
[2016-06-30] MEDS: oxyCODONE/ACETAMINOPHEN 10 MG/325 MG TAB PO PRN ×3 (04:27→13:27)
[2016-06-30] MEDS: cloNIDine HCL 0.2 MG TAB PO SCH (08:35)
[2016-06-30] MEDS: SODIUM CHLORIDE 0.9% FLUSH 10 ML FLUSH SCH (08:44)
[2016-06-30] MEDS ORDERED: predniSONE 20 MG TAB PO SCH (09:00)
[2016-06-30] MEDS ORDERED: PRED10 PO (15:05)
[2016-06-30] MEDS ORDERED: CLON.2 PO (15:05)
[2016-06-30] MEDS ORDERED: VENTAER INH (15:09)
--- NOTE | 2016-06-30 15:10 | HHI.DS ---
Discharge Summary Admission Date June 21, 2016 at 20:55 Discharge Date: June 30, 2016 Admitting Diagnosis large right pneumothorax/chest tube/pulmonary edema (1) Chest tube in place ICD Code: Z97.8 Diagnosis: Principal (2) Pneumothorax, right ICD Code: J93.9 Diagnosis: Principal Procedures chest tube placements Brief History - From Admission 35-year-old female with history of asthma presenting to emergency department for evaluation of shortness of breath. EMS states that patient's oxygen saturation was in the low 70s initially, after 2 DuoNeb and O2 administration her sats were assessed at 92%. Her chart the patient was tachycardic with a rate of 115. After nebulizer treatments patient's heart rate was 130. Patient reports coughing up clear mucus, reports nausea but no vomiting. The chest x- ray revealed large right-sided pneumothorax with attention. The chest tube was placed by ED attending with a good lung reexpansion however complicated with reexpansion pulmonary edema. Patient is placed on facemask BiPAP with improving oxygenation. CBC/BMP: 06/27/16 0550 06/27/16 0550 Imaging Last Impressions Chest X-Ray 06/29/16 0000 Signed Impressions: Service Date/Time: Wednesday, June 29, 2016 10:40 - CONCLUSION: No pneumothorax identified following right chest tube removal. Viet Riddle MD Chest CT 06/21/16 0000 Signed Impressions: Service Date/Time: Tuesday, June 21, 2016 22:53 - CONCLUSION: 1. Large right-sided pneumothorax despite small caliber chest tube. The chest tube is coiled within the major fissure. Consider either a second chest tube more anteriorly or consider having interventional radiology redirect existing tube more anteriorly. 2. Bilateral pulmonary consolidation. Pulmonary edema versus infectious infiltrate. Obie Ho Jr., MD PE at Discharge GENERAL: Well-nourished, well-developed patient. On high flow nasal cannula at .45% in no acute distress, no dyspnea noted CARDIOVASCULAR: Regular rate and rhythm without murmurs RESPIRATORY: Breath sounds equal bilaterally. No accessory muscle use. no wheezing GASTROINTESTINAL: Abdomen soft, non-tender, nondistended. MUSCULOSKELETAL: moves all extremities EXTREMITIES: No edema Pt update on day of discharge Pt feeling much better. Denies any CP/SOB/N/V Discussed w RN, pt has been off oxygen since this morning, ambulating without any difficulties. Hospital Course 1) Resp Insuff 2) Pneumothorax-resolved 3) Reexpansion pulmonary edema-resolved 4) Hx Asthma 5) Anemia 6) Hypertension Pulm: has been off oxygen. s/p IV solumedrol and now on po prednisone. Continue to wean. - 06/22 Chest tube placed by ED attending - 06/22 2nd chest tube placed by Dr. Mckinley general surgery/trauma - 06/28- removal of chest tube -CTS surgery had been following the patient and have signed off at this time. GS also signed off today ID: s/p abx ( Zosyn, Zithromax) Monitor for signs of infections ( fever, WBC). blood cx neg x 5 days, urine cx neg x 48 hrs Strep pneumonia and Legionella urinary Ag negative on 06/22 hx of asthma: prescription of ventolin HFA in chart HTN: script for clonidine in chart Pt Condition on Discharge: Stable Discharge Disposition: Discharge Home Discharge Time: > 30 minutes Discharge Instructions DIET: Follow Instructions for: Heart Healthy Diet Activities you can perform: Regular-No Restrictions Follow up Referrals: PCP Follow-up - 1 Week New Medications: Albuterol 18 GM Inh (Ventolin Hfa 18 GM Inh) 90 Mcg/Act Aer 2 PUFF INH Q4-6H PRN SHORTNESS OF BREATH #1 Ref 0 INHALER Prednisone (Prednisone) 10 Mg Tab 10 MG PO DIRECTED take 20 mg by mouth x 1 day then 10 mg by mouth x 2 days then 5 mg by mouth x 2 days Days 5 Ref 0 TAB Clonidine (Catapres) 0.2 Mg Tab 0.2 MG PO Q12HR Days 30 TAB Elizabeth Diaz MD June 30, 2016 15:10
== END 2016-06-30 17:01 | disposition home or self-care (01) | DRG 199 ==
LOC: NEPD 18:20 → NEDA 20:55 → HIMN 23:00 → N06B 06-30 06:54
PROVIDERS: ADMIT Family Medicine; ATTEND Family Medicine
PROC: 0W9930Z Drainage of Right Pleural Cavity with Drainage Device, Percutaneous Approach (ICD-10-PCS; principal; 2016-06-21)
PROC: 5A09457 Assistance with Respiratory Ventilation, 24-96 Consecutive Hours, Continuous Positive Airway Pressure (ICD-10-PCS; 2016-06-21)
PROC: 0W9930Z Drainage of Right Pleural Cavity with Drainage Device, Percutaneous Approach (ICD-10-PCS; 2016-06-23)
DX: J93.0 Spontaneous tension pneumothorax (principal); J96.01 Acute respiratory failure with hypoxia; J81.0 Acute pulmonary edema; E87.4 Mixed disorder of acid-base balance; I11.9 Hypertensive heart disease without heart failure; J45.909 Unspecified asthma, uncomplicated; R00.0 Tachycardia, unspecified; D64.9 Anemia, unspecified; J84.89 Other specified interstitial pulmonary diseases; F17.210 Nicotine dependence, cigarettes, uncomplicated; F41.9 Anxiety disorder, unspecified
CPT/HCPCS: 32551; 36600; 71010; 71260; 80048; 80053; 81001; 82103; 82150; 82550; 82805; 83690; 83735; 83880; 84100; 84484; 84702; 85007; 85025; 85027; 85379; 85610; 85730; 87040; 87086; 87449; 87641; 93005; 94002; 94003; 94150; 94640; 94664; 96365; 96375; J0360; J0456; J1170; J1650; J1940; J2060; J2270; J2405; J2543; J2920; J2930; J3370; J3480; J7050; J7512; Q9967